=== PATIENT | female | born 1940 | race Caucasian/White ===

== ENCOUNTER 2024-11-30 14:12 | Inpatient (IN) ==
--- NOTE | 2024-11-30 14:45 | Emergency Department Note ---
Impression & Plan Acute exacerbation of CHF (congestive heart failure), Acute dyspnea, Supratherapeutic INR, Pulmonary edema ED Provider Note HISTORY OF PRESENT ILLNESS: Patient is a 84-year-old female presenting due to shortness of breath and elevated INR. Patient presents from home after EMS was called because the patient's doctor called her due to an elevated INR of 9.5. She was referred to the emergency department for vitamin K treatment. Patient reports generalized chest pressure that she rates a 4 out of 10 that is been ongoing for "a very long time." She wears 2 L nasal cannula at baseline. Reports she is more short of breath over the last few days than normal. She reports her left leg is slightly more swollen than it normally is. Patient does not know what anticoagulant she is on or why she is on it. Denies any recent cough or fevers. Denies any abdominal pain, nausea or vomiting. On review of patient's chart, she is on warfarin 5 mg for DVT and PE prophylaxis. ROS: as above PHYSICAL EXAM: Constitutional: Patient appears in no acute distress. Morbidly obese HENT: Head: Normocephalic and atraumatic. Eyes: EOMI, PERRL Mouth/Throat: Mucous membranes moist. Neck: Trachea midline. Neck supple. Cardiovascular: Irregular rhythm. No murmurs, rubs or gallops. Intact distal pulses. Pulmonary/Chest: No respiratory distress. Breath sounds clear and equal bilaterally. No wheezes or rales. Abdominal: Abdomen soft, no tenderness, rebound or guarding. Musculoskeletal: No tenderness or deformity noted. +1 edema of the left lower extremity extending to the mid tibia. Skin: Warm and dry. No rash, erythema, pallor or cyanosis Psychiatric: Appropriate mood and affect for situation. Neurological: Alert and keenly responsive. CN II-XII grossly intact, moving all extremities equally and fully. MDM: - Vitals signs showed tachycardic and hypoxic. Patient was hypoxic on her 2 L nasal cannula and was bumped up to 4 L nasal cannula with improvement in her saturations - History obtained via patient. History as above. - Chronic conditions affecting care: CKD; HTN; CHF; BRAYDEN; chronic hypoxemia (on 2L NC at home); COPD - Differential diagnoses include, but are not limited to: Congestive heart failure; acute coronary syndrome; COPD/asthma exacerbation; pulmonary edema; pulmonary embolism; pneumonia; pneumothorax; viral syndrome - Order placed for continuous cardiac monitoring. At this time, monitor showed rate of 100 bpm with irregular rhythm, per my interpretation. - External medical records reviewed. Discharge summary dated 11/07/2024 from [facility] was reviewed. Patient was admitted at that time due to increasing shortness of breath and leg edema for the last 2 weeks. Patient was diuresed with IV Lasix and was switched to p.o. torsemide on 10/29/2024. Patient continued to have worsening kidney function but gradually returned to her baseline. Her EF as of 10/26/2024 was 60%. On 10/30/2024, repeat chest x-ray showed concern for possible pneumonia and she was started on Rocephin and azithromycin. She completed a 5-day course of both azithromycin and Unasyn for her multifocal, multilobular pneumonia. She was deemed stable and medically ready for discharge on 11/24/2024. - EKG image interpreted by myself showed atrial fibrillation. Rate 99 bpm. QT 326. No acute ischemic changes. - Laboratory workup interpreted by myself showed normal WBC; anemia (Hgb 8.4); stable electrolytes; MIKE on CKD (Cr 3.54); elevated troponin (21.7); elevated BNP (864); normal AST/ALT; normal lipase - CXR image reviewed interpreted by myself showed pulmonary vascular congestion, per my interpretation. Radiology notes increased CHF with pulmonary edema versus pneumonia and possible small pleural effusions - Patient given 40 mg IV lasix - Patient was increased to 4 L nasal cannula with initial improvement in her saturations to the mid 90s. However, she is noted to desaturate to 89 to 91% on 4 L. High flow nasal cannula was ordered. - As of 16:56, patient's PT/INR had not resulted. I did call lab and speak with one of the lab technicians and they report that they are read running the patient's INR, given that it is critically elevated. Report the INR currently is over 9. - 10 mg IV vitamin K was ordered for supratherapeutic INR - Discussion was had with case sealer about patient's case and need for admission - Hospitalist consulted for admission - Patient admitted to [facility] service for further evaluation and management. I have personally spent 62 minutes of critical care time in the direct management of this patient. This includes bedside care, interpretation of diagnostic studies, and testing, discussion with consultants, patient, and family members, and other required patient management activities. This 62 minutes is in excess of all separately billable procedures. ASSESSMENT AND PLAN: Diagnosis: Acute exacerbation of CHF; acute dyspnea; supratherapeutic INR; pulmonary edema Plan: Admit Past Med/Surg History Problem List (Updated 11/30/24 @ 16:58 by Acacia Arredondo MD) Pulmonary edema (Acute) Supratherapeutic INR (Acute) Acute dyspnea (Acute) Acute exacerbation of CHF (congestive heart failure) (Acute) Anemia Medical History Anemia CRF (chronic renal failure) Social History Smoking Status: Former smoker Preferred Language: Zambian Feels Safe at Home: Yes Results & Data (ED) Vital Signs Vital Signs - 24 hr 11/30/24 14:16 11/30/24 14:16 11/30/24 14:31 Temperature 36.5 C Temperature Source Oral Pulse Rate 106 H 100 H Pulse Rate [Apical] Respiratory Rate 22 Blood Pressure 124/70 Blood Pressure [Right Arm] Blood Pressure Mean 88 Blood Pressure Mean [Right Arm] Blood Pressure Position Sitting Pulse Oximetry 90 86 L Oxygen Delivery Method Nasal Cannula Nasal Cannula Oxygen Flow Rate 4 2 Sepsis Recent Fever Within 48 Hours No Sepsis New/Unexplained Change in Mental Status No Sepsis Action Taken by Nursing Physician Notified Oxygen Flow Rate - Titration 4 Pulse Oximetry Post Tiitration 90 11/30/24 16:05 Temperature Temperature Source Pulse Rate Pulse Rate [Apical] 89 Respiratory Rate 18 Blood Pressure Blood Pressure [Right Arm] 133/79 Blood Pressure Mean Blood Pressure Mean [Right Arm] 97 Blood Pressure Position Pulse Oximetry 91 Oxygen Delivery Method Nasal Cannula Oxygen Flow Rate 4 Sepsis Recent Fever Within 48 Hours Sepsis New/Unexplained Change in Mental Status Sepsis Action Taken by Nursing Oxygen Flow Rate - Titration Pulse Oximetry Post Tiitration Laboratory Data 11/30/24 14:34 11/30/24 14:34 Lab Results 11/30/24 Range/Units 14:34 WBC 6.54 (4.8-10.8) K/ul RBC 4.13 L (4.20-5.40) M/uL Hgb 8.4 L (12.0-16.0) g/dl Hct 28.3 L (37.0-47.0) % MCV 68.5 L (80.0-100.0) fL MCH 20.3 L (25.0-34.0) pg MCHC 29.7 L (32.0-36.0) g/dL RDW Std Deviation 46.8 H (36.4-46.3) fL RDW Coeff of Elena 19.4 H (11.5-14.5) % Plt Count 321 (130-400) K/uL MPV 10.0 (9.4-12.4) fL Immature Gran % (Auto) 0.5 % Neut % (Auto) 75.0 % Lymph % (Auto) 11.9 % George % (Auto) 10.9 % Eos % (Auto) 1.5 % Baso % (Auto) 0.2 % Neut # (Auto) 4.91 (1.40-6.50) K/uL Lymph # (Auto) 0.78 L (1.20-3.40) K/uL George # (Auto) 0.71 H (0.11-0.59) K/uL Eos # (Auto) 0.10 (0.00-0.50) K/uL Baso # (Auto) 0.01 (0.00-0.20) K/uL Immature Gran # (Auto) 0.03 (0.01-0.20) K/uL Microcytosis Present Tear Drop Cells 1+ Ovalocytes 1+ Sodium 140 (136-145) mmol/L Potassium 4.6 (3.5-5.1) mmol/L Chloride 103 (98-107) mmol/L Carbon Dioxide 30 (21-32) mmol/L Anion Gap 7 (3-11) BUN 95 H (6-23) mg/dl Creatinine 3.54 H (0.6-1.2) mg/dl Est Cr Clr Drug Dosing 12.8 ml/min eGFR 12.19 BUN/Creatinine Ratio 26.8 H (10-20) Glucose 109 H (70-99(Fasting)) mg/dl Calcium 9.1 (8.6-10.3) mg/dl Total Bilirubin 0.6 (0.2-1.0) mg/dl AST 23 (13-39) U/L ALT 13 (7-52) U/L Alkaline Phosphatase 36 (34-104) U/L Troponin I High Sens 21.7 H (0-14) pg/ml B-Natriuretic Peptide 864 H (0-100) pg/ml Total Protein 6.8 (6.0-8.3) gm/dl Albumin 3.6 (3.4-5.0) gm/dl Globulin 3.2 (2.5-4.0) gm/dl Albumin/Globulin Ratio 1.1 (0.9-2) Lipase 18 (11-82) U/L Imaging Data Radiologist's Impression: Chest X-Ray 11/30/24 14:16 XR chest 1V portable CLINICAL HISTORY: Chest pain, nonspecific COMPARISON STUDY: 10/08/2022 FINDINGS: There is increased cardiomegaly with pulmonary vascular congestion. There is interval patchy bilateral pulmonary opacity most prominent centrally. There is blunting of the costophrenic angles. No pneumothorax. IMPRESSION: 1. Increased CHF. 2. Pulmonary edema versus pneumonia. 3. Possible small pleural effusions. ACT 112: Negative or not required by law. Electronically signed by: Cain Cornelius M.D. 11/30/2024 2:48 PM Discharge Plan Visit Data Chief Complaint: Chest Pain ED Provider: Acacia Arredondo Discharge Problem: Acute exacerbation of CHF (congestive heart failure), Acute dyspnea, Supratherapeutic INR, Pulmonary edema Condition: Fair Forms Stand Alone Forms: My [facility] Referrals Referrals: Luis Ross MD [Outside Practitioners] -
--- NOTE | 2024-11-30 14:49 | XRay Report ---
XR chest 1V portable CLINICAL HISTORY: Chest pain, nonspecific COMPARISON STUDY: 10/08/2022 FINDINGS: There is increased cardiomegaly with pulmonary vascular congestion. There is interval patch y bilateral pulmonary opacity most prominent centrally. There is blunting of the costophrenic angles. No pneumothorax. IMPRESSION: 1. Increased CHF. 2. Pulmonary edema versus pneumonia. 3. Possible small pleural effusions. ACT 112: Negative or not required by law. Electronically signed by: Cain Cornelius M.D. 11/30/2024 2:48 PM
[2024-11-30 14:52] LABS: Hematocrit (blood only) 28.3 % (37.0-47.0); Hemoglobin 8.4 g/dl (12.0-16.0); Immature Granulocytes # (auto) 0.03 K/uL (0.01-0.20); Immature Granulocytes % (auto) 0.5 %; Mean Corpuscular Hemoglobin 20.3 pg (25.0-34.0); Mean Corpuscular Volume 68.5 fL (80.0-100.0); RDW Standard Deviation 46.8 fL (36.4-46.3); Red Blood Count 4.13 M/uL (4.20-5.40); White Blood Count 6.54 K/ul (4.8-10.8)
[2024-11-30 15:10] LABS: Alanine Aminotransferase 13.0 U/L (7-52); Albumin Globulin Ratio 1.1 (0.9-2); Albumin Level 3.6 gm/dl (3.4-5.0); Alkaline Phosphatase 36.0 U/L (34-104); Anion Gap 7.0 (3-11); Bilirubin,Total 0.6 mg/dl (0.2-1.0); Blood Urea Nitrogen 95.0 mg/dl (6-23); Calcium 9.1 mg/dl (8.6-10.3); Carbon Dioxide 30.0 mmol/L (21-32); Chloride 103.0 mmol/L (98-107); Creatinine Clr Calc Pharmacy 12.8 ml/min; Globulin 3.2 gm/dl (2.5-4.0); Glucose 109.0 mg/dl (70-99(Fasting)); Lipase 18.0 U/L (11-82); Potassium 4.6 mmol/L (3.5-5.1); Sodium 140.0 mmol/L (136-145); Total Protein 6.8 gm/dl (6.0-8.3)
[2024-11-30 15:13] LABS: Microcytosis Present; Ovalocytes 1+; Platelet Count 321 K/uL (130-400); Tear Drop Cells 1+
[2024-11-30 17:21] LABS: INR > 9.5 (0.9-1.1); Prothrombin Time > 90.0 Seconds (9.0-12.0)
[2024-11-30] MEDS: FUROSEMIDE 40 MG/4 ML VIAL IV ONE (17:37)
[2024-11-30] MEDS: PHYTONADIONE 10 MG in DEXTROSE 5% 50 ML IV ONE (18:19)
--- NOTE | 2024-11-30 18:26 | History & Physical Report ---
Date of Service November 30, 2024 Assessment & Plan (1) Hypoxic respiratory failure: (2) Pulmonary edema: (3) Supratherapeutic INR: (4) Acute exacerbation of CHF (congestive heart failure): (5) Anemia: (6) Acute renal failure: Plan #acute hypoxic respiratory failure present on admissionappears to be pulmonary edema due to undefined CHF. I do not find record of an echocardiogram from her previous hospital stay, and she does not recall 1 being done. Fortunately nothing appears consistent with an acute NJ right now, and we will manage the CHF even as we define its etiology. I suspect the "why now" is likely sodium ingestion at home given that she was only home for about a week and then started feeling more dyspneicwe will work on educating her further. Given that she is in significant respiratory failure requiring high flow nasal cannulahave to assume that diuresis will improve her acute renal failure, and also unfortunately have to value protecting her breathing over her GFR at the current time. Lasix 40 mg IV twice daily. Follow urine output, follow lung exam and oxygen requirements, follow creatinine. Check echocardiogram. Continue home medications for now, (Holding nifedipine to allow for more "wiggle room" and her blood pressure for additional Lasix and/or other CHF medications if necessary). adjust depending on echocardiogram results. #Acute renal failureappears to be superimposed on baseline probably stage III CKDhave to assume poor forward flow from CHF at this time. Follow with diuresis. As long as she is able to diurese well, I would anticipate stability or hopefully improvement in creatinine. If she does not respond to diuresis, then may need to enlist nephrology if we are in renal failure with pulmonary edema that is refractory to diuretics. At this time doing 40 mg of Lasix is only a moderate dose, obviously if she does not respond to the Lasix and her breathing is still poor, would first escalate the Lasix dosing. No suspicion of obstruction. #Atrial fibrillationappears to been a new diagnosis at her prior hospitalization. Rate is controlled. Her anticoagulation is supratherapeutic due to her Coumadin coagulopathy. Fortunately no bleeding. She has been given vitamin K in the ER. Follow her INR. I do not see a specific indication that requires Coumadingiven this situation, we will see if she is able to take a DOAC when she is stable for discharge at this time. (On review of her records from [place], there is a bullet point diagnosis of mitral stenosis, but I see no other confirmationthis could potentially be why she is on warfarin). #Anemiaappears to be at least subacute and stable from her hospitalization earlier in the month. No signs of active bleeding. Follow. #Chronic hypercapnic respiratory failurediagnosed as BRAYDEN and OHS during her previous hospital stayBiPAP at bedtime, as we get closer to discharge will need to make sure that she has the BiPAP at home. Morbid obesity with a BMI of 41.4 probably contributing to this. #Hypothyroidismcontinue Synthroid #DVT prophylaxisanticoagulated as above #[facility]ad[facility] OT to help guide disposition once she is stable enough to get out of the hospital, and she notes she would like to be a DNR. History of Present Illness Chief Complaint: shortness of breath Primary Care Provider: TIM Bowen patient is a very pleasant 84-year-old female. She was at [facility] through 11/07. Sent to [facility] for rehab, she was there for about 2 weeks and then discharged to home. She notes up until about yesterday she was doing reasonably well at home. And then yesterday into today she started to feel more progressively short of breath. Denies fevers chills or sweats. Denies cough or sputum. Denies weight gain or edema. On directed questioning endorses orthopnea and may be some dyspnea on exertion. Seems a little overwhelmed and is maybe currently not the best historian, a lot of HPI from directed questioningspontaneously she mostly volunteers feeling more short of breath. On review of records it appears that she was at [facility] with dyspnea initially thought to be CHF she had A-fib with RVR, was diuresed, and then it appears that whenever her breathing was not improving enough it was pursued further with a CT that showed a multifocal pneumonia that was treated. She also showed hypercapnic respiratory failure and was sent with prescription for BiPAP appears to be at bedtime. She was started on warfarin for stroke prophylaxis with her A-fib. Past Med/Surg History Problem List (Updated 11/30/24 @ 18:21 by Petr Rodriguez DO) Acute renal failure Hypoxic respiratory failure Pulmonary edema (Acute) Supratherapeutic INR (Acute) Acute dyspnea (Acute) Acute exacerbation of CHF (congestive heart failure) (Acute) Anemia Medical History CRF (chronic renal failure) Social History Smoking Status: Former smoker Preferred Language: Chinese Feels Safe at Home: Yes Review of Systems Review of Systems: All systems reviewed & are unremarkable except as noted in HPI & below Physical Exam Physical Exam: In general she is awake and alert fatigued and appears to be in a mild degree of respiratory distress. HEENT normocephalic atraumatic mucous membranes moist. Cardio is regular rate somewhat distant and appears to be A-fib on the monitor. Lungs are difficult exam due to her positioning and weakness, but seems to be diminished bibasilar to maybe about a third of the way up, faint scattered rales. Mild accessory muscle use. Mild conversational dyspnea. Abdomen is soft nondistended nontender no masses organomegaly. Extremities show bilateral lower extremity maybe 1+ edema with a chronic appearance to it left is maybe slightly larger than the right. Neuro shows cranial nerves II through XII be grossly intact gross motor and sensory intact. Musculoskeletal exam shows no gross lesions or deformities. Chest x-ray shows pulmonary edema. Labs noted especially for a creatinine of 3.54 (most recent of 2.41 here and it appears that it was as good is around 1.41.5 at [place]. She did have a high-sens itivity troponin there that peaked it appears at about 102 (it is about 22 here). She is anemic with a hemoglobin of 8.4 which is similar to what it was they are (8.6) Results & Data Results & Data Vital Signs (Past 12 Hours) Vital Signs Temp Pulse Pulse Resp BP BP Pulse Ox 11/30/24 17:51 11/30/24 17:03 93 H 20 91 11/30/24 16:05 89 18 133/79 91 11/30/24 14:31 100 H 11/30/24 14:16 86 L 11/30/24 14:16 97.7 F 106 H 22 124/70 90 O2 Del Method O2 Flow Rate FiO2 11/30/24 17:51 60 11/30/24 17:03 High Flow Nasal Cannula 30 50 11/30/24 16:05 Nasal Cannula 4 11/30/24 14:31 11/30/24 14:16 Nasal Cannula 2 11/30/24 14:16 Nasal Cannula 4 Code Status & VTE Plan VTE Prophylaxis Plan VTE Prophylaxis will be ordered: Yes PG Care Time/CCT Total # of Minutes Spent Total Time Spent with Patient: Total time spent is greater than 50% in coordination of care (as documented) at patient's floor/unit and/or counseling patient: Coding Level of Care Code 48430 INT INP/OBS CARE 3/75MIN Diagnoses Hypoxic respiratory failure J96.91 Pulmonary edema J81.1 Supratherapeutic INR R79.1 Acute exacerbation of CHF (congestive heart failure) I50.9 Anemia D64.9 Acute renal failure N17.9
[2024-11-30] MEDS ORDERED: POLYETHYLENE (MIRALAX) 17 GM PACK PO PRN (19:31)
[2024-11-30] MEDS ORDERED: ALUMINUM/MAGNESIUM SUSP 30 ML UDC PO PRN (19:31)
[2024-11-30] MEDS: FUROSEMIDE 40 MG/4 ML VIAL IV SCH (20:24)
[2024-12-01] MEDS: LEVOTHYROXINE SODIUM 50 MCG TABLET PO SCH (05:42)
[2024-12-01 06:28] LABS: Hematocrit (blood only) 29.7 % (37.0-47.0); Hemoglobin 8.7 g/dl (12.0-16.0); Immature Granulocytes # (auto) 0.06 K/uL (0.01-0.20); Immature Granulocytes % (auto) 0.6 %; Mean Corpuscular Hemoglobin 20.0 pg (25.0-34.0); Mean Corpuscular Volume 68.1 fL (80.0-100.0); RDW Standard Deviation 45.9 fL (36.4-46.3); Red Blood Count 4.36 M/uL (4.20-5.40); White Blood Count 9.88 K/ul (4.8-10.8)
[2024-12-01 06:34] LABS: Platelet Count 341 K/uL (130-400)
[2024-12-01 06:44] LABS: Anion Gap 10.0 (3-11); Blood Urea Nitrogen 100.0 mg/dl (6-23); Calcium 9.5 mg/dl (8.6-10.3); Carbon Dioxide 32.0 mmol/L (21-32); Chloride 101.0 mmol/L (98-107); Creatinine Clr Calc Pharmacy 14.5 ml/min; Glucose 97.0 mg/dl (70-99(Fasting)); Potassium 4.5 mmol/L (3.5-5.1); Sodium 143.0 mmol/L (136-145)
[2024-12-01 06:55] LABS: Hypochromasia Present; Microcytosis Present; Ovalocytes 1+; Polychromasia 1+; Tear Drop Cells 1+
[2024-12-01 07:02] LABS: INR 1.8 (0.9-1.1); Prothrombin Time 18.3 Seconds (9.0-12.0)
--- NOTE | 2024-12-01 07:27 | Hospitalist Progress Note ---
Date of Service December 01, 2024 Assessment & Plan (1) Acute respiratory failure with hypoxia: (2) Acute on chronic heart failure with preserved ejection fraction: (3) Acute kidney injury superimposed on chronic kidney disease: (4) CKD stage 3b, GFR 30-44 ml/min: (5) Essential hypertension: (6) Paroxysmal atrial fibrillation: (7) Anticoagulation goal of INR 2 to 3: (8) Obesity hypoventilation syndrome: (9) BiPAP (biphasic positive airway pressure) dependence: (10) Microcytic hypochromic anemia: (11) Nicotine dependence in remission: (12) Dependence on supplemental oxygen: (13) Hypothyroidism (acquired): (14) Supratherapeutic INR: (15) Osteoporosis: (16) Mitral stenosis: (17) Chronic heart failure with preserved ejection fraction: Plan In summary this is an 84-year-old female who presented to the [facility] at the behest of their primary care physician due to supratherapeutic INR subsequently admitted for acute respiratory failure in the setting of acute on chronic heart failure exacerbation with preserved ejection fraction in addition to an acute on chronic kidney injury. #Acute on chronic respiratory failure with hypoxia secondary to acute on chronic HFpEF exacerbation // Paroxysmal atrial fibrillation // Essential hypertension Previously diagnosed condition; most recent ejection fraction from recent admission to an external hospital system was greater than 50% consistent with HFpEF; patient continues to manifest signs and symptoms of heart fail exacerbation including increased oxygen requirement, tachycardia, relative hypotension, pleural effusions and clinical exam consistent with volume overload from a primarily left-sided heart failure exacerbation; most recent diuresis rate of approximately 0.6 mL/kg/h Review the patient's home medications reveals torsemide 60 mg p.o. daily, which at this time we are not currently reaching the threshold up with previously administered loop diuretics; with 2 separate doses of bumetanide 2 mg IV the patient has had relatively minimal urine output compared to her apparent volume overload; at this time we will pursue bumetanide drip at 2 mg/h over a 5- hour period Place Urbano catheter for accurate output measures -Nursing to notify of new or increased oxygen requirement, sustained heart rate of greater than 120 or less than 50 bpm - Maintain low-sodium and low-fat diet -Measure intake and output every shift -If the patient does not have adequate diuresis with loop diuretic drip, may need to consider sequential nephron blockade with metolazone; if this is necessary would anticipate need to consult nephrology given her underlying renal disease and optimization of her diuresis and preservation of renal function -Follow daily RFP and Magnesium - Pending TTE #Acute kidney injury consequential of cardiorenal syndrome // CKD stage IIIb The patient's baseline renal function is presumed to be in stage IIIb range, there is limited previous documentation to confirm this; presented with elevated creatinine of greater than 3 with estimated creatinine clearance of less than 15; currently oliguric without recent hypotensive episode, is superimposed upon an acute heart failure exacerbation without specified recent needed nephrotoxins; at this time there are no significant electrolyte nor acid-base derangements; suspect this is likely prerenal acidemia in the setting of cardiorenal syndrome given her primary presentation of heart failure exacerbation - Nursing to modify urine output rate as detailed above #Supratherapeutic INR in the setting of VKA prescription The patient initially presented with a severely elevated INR and PTT which have improved after single dose of intravenous vitamin K; it is unclear based on previous documentation why the patient was started on a V KA as opposed to DOAC at her previous hospitalization when her atrial fibrillation was diagnosed however with discussion at bedside it appears to be a primarily financial concern Resume warfarin 5 mg p.o. daily on 12/01 Reassess INR on 12/03 #Obesity hypoventilation syndrome Chronic condition; maintain patient's O2 saturation during waking hours in the range of 88 to 92% to avoid hypercapnic respiratory failure; continue overnight BiPAP with patient's home settings Admission and Anticipated Discharge Date Admission Date: November 30, 2024 Subjective Ms. Gil is an 84-year-old female whose active medical conditions include chronic heart failure with preserved ejection fraction, paroxysmal atrial fibrillation, CKD stage IIIb, obesity hypoventilation syndrome among other chronic medical conditions who presented to the [facility] on 11/30 by the behest of their primary care physician due to being hypercoagulable on her prescribed vitamin K antagonist. She was subsequently admitted for acute on chronic heart failure exacerbation with acute respiratory failure with hypoxia. No acute overnight events; the patient does not endorse any concerns at this time Review of Systems Review of Systems: Review of cardiovascular, pulmonary, constitutional, genitourinary, gastrointestinal, neurologic systems was unremarkable Physical Exam Physical Exam: General: Elderly female in mild acute respiratory distress Vital Signs: Tachypneic with accessory muscle breathing, requiring 30 L via nasal cannula at 80% FiO2 to maintain O2 saturation in the range of 90 to 95%; tachycardic with irregular RR interval on telemetry in the range of 105 to 125 bpm HEENT: Tacky mucous membranes; pupils equally round reactive to light, extraocular motion intact Neck: Hepatojugular reflux noted approximately 5 cm cephalad of the costal border Pulmonary: Symmetric reduced chest wall excursion secondary to body habitus; diminished air movement in the posterior basilar segments bilaterally with soft crackles, remaining lobes have air movement with no restriction Cardiovascular: Tachycardic, irregularly irregular rhythm with no murmurs, rubs, or gallops; S1 and S2 normal; bilateral radial and posterior tibial pulse 2+; trace bilateral lower extremity edema distal of the mid leg with brisk capillary refill Gastrointestinal: Soft, protuberant; bowel sounds present throughout with normal pitch and frequency Neurologic: Cranial nerves II through XII grossly intact Results & Data Results & Data Vital Signs (Past 12 Hours) Vital Signs Temp Pulse Resp BP BP Pulse Ox Pulse Ox 12/01/24 03:42 99 H 22 92 12/01/24 03:31 36.5 C 127 H 18 127/105 H 93 11/30/24 22:43 104 H 25 H 93 11/30/24 22:00 11/30/24 21:32 112 H 16 159/108 H 90 11/30/24 21:17 104 H 36 H 90 11/30/24 20:22 91 11/30/24 20:22 102 H 21 123/93 O2 Del Method O2 Del Method O2 Flow Rate FiO2 12/01/24 03:42 High Flow Nasal Cannula 25 80 12/01/24 03:31 BiPAP 11/30/24 22:43 High Flow Nasal Cannula 30 65 11/30/24 22:00 High Flow Nasal Cannula 30 65 11/30/24 21:32 High Flow Nasal Cannula 30 65 11/30/24 21:17 High Flow Nasal Cannula 30 65 11/30/24 20:22 High Flow Nasal Cannula 11/30/24 20:22 Laboratory Results Improved INR from greater than 9.5-1.8; PTT previously greater than 90, now 18.3; creatinine downtrending to 3.06 from 3.54 PG Care Time/CCT Total # of Minutes Spent Total Time Spent with Patient: Total time spent is greater than 50% in coordination of care (as documented) at patient's floor/unit and/or counseling patient: Coding Level of Care Code 72165 SUB INP/OBS CARE 350MIN Diagnoses Acute respiratory failure with hypoxia J96.01 Acute on chronic heart failure with preserved ejection fraction I50.33 Acute kidney injury superimposed on chronic kidney disease N17.9; N18.9 CKD stage 3b, GFR 30-44 ml/min N18.32 Essential hypertension I10 Paroxysmal atrial fibrillation I48.0 Anticoagulation goal of INR 2 to 3 Z51.81; Z79.01 Obesity hypoventilation syndrome E66.2 BiPAP (biphasic positive airway pressure) dependence Z99.89 Microcytic hypochromic anemia D50.9 Cigarette nicotine dependence in remission F17.211 Nicotine product type: cigarettes Dependence on supplemental oxygen Z99.81 Hypothyroidism (acquired) E03.9 Supratherapeutic INR R79.1 Age-related osteoporosis without current pathological fracture M81.0 Osteoporosis type: age-related Presence of current pathological fracture: without current pathological fracture Nonrheumatic mitral valve stenosis I34.2 Cardiac valve disease etiology: nonrheumatic Chronic heart failure with preserved ejection fraction I50.32 (11) Nicotine dependence in remission Nicotine product type: cigarettes Qualified Code(s): F17.211 - Nicotine dependence, cigarettes, in remission (15) Osteoporosis Osteoporosis type: age-related Presence of current pathological fracture: without current pathological fracture Qualified Code(s): M81.0 - Age-related osteoporosis without current pathological fracture (16) Mitral stenosis Cardiac valve disease etiology: nonrheumatic Qualified Code(s): I34.2 - Nonrheumatic mitral (valve) stenosis
[2024-12-01] MEDS: BUMETANIDE 2 MG in SYRINGE 0 ML IV ONE ×2 (08:33→13:37)
[2024-12-01] MEDS: FAMOTIDINE 20 MG TAB PO SCH (08:34)
[2024-12-01] MEDS: ATORVASTATIN 20 MG TAB PO SCH (08:34)
[2024-12-01] MEDS: CALCITRIOL 0.25 MCG CAPSULE PO SCH (08:34)
[2024-12-01] MEDS: METOPROLOL SUCC 25MG EXT REL TAB PO SCH (08:34)
[2024-12-01] MEDS: CHOLECALCIFEROL 125 MCG (5,000 UNITS) TAB PO SCH (08:34)
[2024-12-01] MEDS: FENOFIBRATE NANOCRYSTALLIZED 145 MG TABLET PO SCH (08:34)
[2024-12-01] MEDS: RALOXIFENE HCL 60 MG TAB PO SCH (08:34)
[2024-12-01] MEDS: CYANOCOBALAMIN (B-12) 500 MCG TABLET PO SCH (08:34)
[2024-12-01] MEDS: POTASSIUM CHLORIDE 10 MEQ TABCR PO SCH (08:35)
[2024-12-01] MEDS ORDERED: CETIRIZINE HCL 10 MG TABLET PO SCH (09:00)
[2024-12-01] MEDS ORDERED: ASPIRIN 81 MG ECTAB PO SCH (09:00)
[2024-12-01 14:27] LABS: Base Excess VBG 9.2 mEq/L; HCO3 VBG 35 mmol/L; Oxygen Saturation VBG 79.9 %; PCO2 VBG 57 mmHg (38-50); PO2 VBG 48 mmHg; pH VBG 7.40 (7.36-7.41)
--- NOTE | 2024-12-01 14:29 | Communication Note ---
Date of Service: December 01, 2024 Called by nursing staff to evaluate patient at bedside due to new altered mental status; on initial evaluation the patient is somnolent, tachypneic with a respiratory rate of approximately 24-26 RPM with accessory muscle use similar to earlier in the day, requiring 3 L with 80% FiO2 via high flow nasal cannula saturating at 95 to 98% SpO2, stable blood pressure within normal range, tachycardic in the range of 115 to 120 bpm with irregular RR interval on telemetry; patient is arousable to loud verbal stimuli; she is not oriented to self, place, nor time; she rouses quickly, but precipitously falls back to sleep; she is able to follow commands, without focal neurologic deficit; GCS 13 E3 V4 M6; remaining physical exam is unchanged from what was documented earlier on 12/01 A/P: Metabolic encephalopathy, most likely to be hypercapnic respiratory failure; pending VBG at this time, though clinically is consistent with likely hypercapnia given the patient's known restrictive lung disease and persistently elevated SpO2 compared to goal without adequate ventilation support; after blood was drawn, patient is placed prematurely on BiPAP, we will reassess after 1 to 2 hours on BiPAP, or sooner if the patient's VBG is not consistent with the suspected cause.
[2024-12-01] MEDS: BUMETANIDE 10 MG in DEXTROSE 5% 10 ML IV SCH (14:35)
[2024-12-01 14:49] LABS: Hematocrit (blood only) 26.7 % (37.0-47.0); Hemoglobin 7.9 g/dl (12.0-16.0); Mean Corpuscular Hemoglobin 20.1 pg (25.0-34.0); Mean Corpuscular Volume 67.9 fL (80.0-100.0); Platelet Count 285 K/uL (130-400); RDW Standard Deviation 45.7 fL (36.4-46.3); Red Blood Count 3.93 M/uL (4.20-5.40); White Blood Count 7.12 K/ul (4.8-10.8)
[2024-12-01 14:56] LABS: Albumin Level 3.3 gm/dl (3.4-5.0); Anion Gap 10.0 (3-11); Blood Urea Nitrogen 92.0 mg/dl (6-23); Calcium 9.0 mg/dl (8.6-10.3); Carbon Dioxide 31.0 mmol/L (21-32); Chloride 99.0 mmol/L (98-107); Creatinine Clr Calc Pharmacy 14.4 ml/min; Glucose 118.0 mg/dl (70-99(Fasting)); Magnesium 2.4 mg/dl (1.7-2.4); Potassium 4.3 mmol/L (3.5-5.1); Sodium 140.0 mmol/L (136-145)
[2024-12-01] MEDS: WARFARIN SOD 5 MG TAB PO SCH (16:47)
--- NOTE | 2024-12-01 18:22 | XCELERA ---
[id number] \\[id number]
[2024-12-01] MEDS: LACTATED RINGER'S 500 ML IV ONE (22:51)
[2024-12-01] MEDS: ALBUMIN 25% 25 GM/100 ML VIAL IV ONE (22:56)
--- NOTE | 2024-12-01 23:02 | Communication Note ---
Date of Service: December 01, 2024 Nurse let me know that pt in afib RVR rates 130-140s this evening. BP was 110s/60-80s. She is on bipap. Per chart review, pt being treated for CHF, seemed to have 80 mg IV lasix yesterday on 11/30 and 4mg bumex IV today with initiation of bumex drip in the afternoon. BP subsequently in the 80/50s. Given 500mL LR bolus + 25gm albumin for intravascular retention. Repeat labs BMP and Mag ordered. Pt appears dry but otherwise well at bedside, has bipap on so difficult to converse but denies chest pain or SOB and states she is feeling well. Will continue to monitor overnight.
[2024-12-01 23:46] LABS: Anion Gap 9.0 (3-11); Calcium 8.9 mg/dl (8.6-10.3); Carbon Dioxide 33.0 mmol/L (21-32); Chloride 98.0 mmol/L (98-107); Magnesium 2.4 mg/dl (1.7-2.4); Potassium 4.3 mmol/L (3.5-5.1); Sodium 140.0 mmol/L (136-145)
[2024-12-01 23:51] LABS: Blood Urea Nitrogen 93.0 mg/dl (6-23); Creatinine Clr Calc Pharmacy 13.8 ml/min; Glucose 102.0 mg/dl (70-99(Fasting))
--- NOTE | 2024-12-02 01:12 | XRay Report ---
Exam(s): XR CXR 1 VIEW EXAM: XR Chest, 1 View CLINICAL HISTORY: Reason for exam: CHF f/u. TECHNIQUE: Frontal view of the chest. COMPARISON: 11/30/2024 FINDINGS: Lungs: Hazy perihilar and bibasilar increased densities suggesting CHF/pulmonary edema, slightly improved since previous. Pleural space: Unremarkable. No pneumothorax. Heart: Cardiac silhouette is mildly enlarged. Mediastinum: Unremarkable. Normal mediastinal contour. Bones/joints: Unremarkable. No acute fracture. IMPRESSION: 1. Hazy perihilar and bibasilar increased densities suggesting CHF/pulmonary edema, slightly improved since previous. The aortic arch is mildly calcified. 2. Cardiac silhouette is mildly enlarged. Electronically signed by: Rufino Duran MD 12/02/24 01:11 AM
[2024-12-02] MEDS: ACETAMINOPHEN 325 MG TAB PO PRN (06:08)
[2024-12-02 06:35] LABS: INR 1.7 (0.9-1.1); Prothrombin Time 17.4 Seconds (9.0-12.0)
--- NOTE | 2024-12-02 06:57 | Electrocardiogram Report ---
Test Reason : Blood Pressure : */* mmHG Vent. Rate : 99 BPM Atrial Rate : * BPM P-R Int : * ms QRS Dur : 94 ms QT Int : 326 ms P-R-T Axes : * 71 -80 degrees QTcB Int : 418 ms Atrial fibrillation Low voltage QRS Nonspecific T wave abnormality Abnormal ECG No previous ECGs available Confirmed by Jhony Jules ([id number]) on 12/02/2024 6:57:22 AM Referred By: REFERRED SELF Confirmed By: Jhony Jules
--- NOTE | 2024-12-02 07:17 | Hospitalist Progress Note ---
Date of Service December 02, 2024 Assessment & Plan (1) Acute respiratory failure with hypoxia: (2) Acute on chronic heart failure with preserved ejection fraction: (3) Acute kidney injury superimposed on chronic kidney disease: (4) Atrial fibrillation with rapid ventricular response: (5) Paroxysmal atrial fibrillation: (6) Anticoagulation goal of INR 2 to 3: (7) Obesity hypoventilation syndrome: (8) BiPAP (biphasic positive airway pressure) dependence: (9) Dependence on supplemental oxygen: (10) Supratherapeutic INR: Plan In summary this is an 84-year-old female who presented to the [facility] at the behest of their primary care physician due to lamb pratherapeutic INR subsequently admitted for acute respiratory failure in the setting of acute on chronic heart failure exacerbation with preserved ejection fraction in addition to an acute on chronic kidney injury. #Acute on chronic respiratory failure with hypoxia secondary to acute on chronic HFpEF exacerbation // Paroxysmal atrial fibrillation // Essential hypertension Previously diagnosed condition; TTE obtained on 12/01 shows hyperdynamic ejection fraction greater than 70% with rapid irregular rhythm consistent with patient's documented atrial fibrillation with rapid ventricular response as further detailed below; there is no evidence of cardiomyopathy nor ischemic injury at this time; patient continues to manifest signs and symptoms of heart failure exacerbation including increased oxygen requirement, tachycardia, relative hypotension, pleural effusions and clinical exam consistent with volume overload from a primarily left-sided heart failure exacerbation; The symptoms have improved since initiation of the bumetanide drip on 12/02; most recent diuresis rate of approximately 0.91 mL/kg/h Review the patient's home medications reveals torsemide 60 mg p.o. daily; continue with bumetanide 4 mg IV daily Maintain Urbano catheter for accurate output measures - Nursing to notify of new or increased oxygen requirement, sustained heart rate of greater than 120 or less than 50 bpm - Maintain low-sodium and low-fat diet - Measure intake and output every shift - Follow daily RFP and Magnesium #Atrial fibrillation with RVR Intermittent since initial presentation; most likely consequential of volume overload and subsequently maintaining the patient's heart failure exacerbation; patient is asymptomatic at this time Administer Cardizem bolus followed by gtt. Resume Coumadin on 12/02 #Acute kidney injury consequential of cardiorenal syndrome // CKD stage IIIb The patient's baseline renal function is presumed to be in stage IIIb range, there is limited previous documentation to confirm this; presented with elevated creatinine of greater than 3 with estimated creatinine clearance of less than 15; currently oliguric without recent hypotensive episode, is superimposed upon an acute heart failure exacerbation without specified recent needed nephrotoxins; at this time there are no significant electrolyte nor acid-base derangements; suspect this is likely prerenal acidemia in the setting of cardiorenal syndrome given her primary presentation of heart failure exacerbation - Nursing to notify of urine output rate as detailed above #Supratherapeutic INR in the setting of VKA prescription The patient initially presented with a severely elevated INR and PTT which have improved after single dose of intravenous vitamin K; it is unclear based on previous documentation why the patient was started on a V KA as opposed to DOAC at her previous hospitalization when her atrial fibrillation was diagnosed however with discussion at bedside it appears to be a primarily financial concern Resume warfarin 5 mg p.o. daily on 12/01 Reassess INR on 12/03 #Obesity hypoventilation syndrome Chronic condition; maintain patient's O2 saturation during waking hours in the range of 88 to 92% to avoid hypercapnic respiratory failure; continue overnight BiPAP with patient's home settings Admission and Anticipated Discharge Date Admission Date: November 30, 2024 Subjective Ms. Gil is an 84-year-old female whose active medical conditions include chronic heart failure with preserved ejection fraction, paroxysmal atrial fibrillation, CKD stage IIIb, obesity hypoventilation syndrome among other chronic medical conditions who presented to the [facility] on 11/30 by the behest of their primary care physician due to being hypercoagulable on her prescribed vitamin K antagonist. She was subsequently admitted for acute on chronic heart failure exacerbation with acute respiratory failure with hypoxi a. Overnight the patient was noted to enter into atrial fibrillation with rapid ventricular response, the responding physician ordered a fluid bolus which did not significantly change the patient's vital signs. The patient was asymptomatic of this arrhythmia however it is persistent this morning. The patient this morning is more alert compared to 12/01, still with some subjective shortness of breath however they feel improved compared to their initial presentation. Review of Systems Review of Systems: Review of cardiovascular, pulmonary, constitutional, genitourinary, gastrointestinal, neurologic systems was unremarkable Physical Exam Physical Exam: General: Elderly female in mild acute respiratory distress Vital Signs: Tachypneic with accessory muscle breathing, requiring 12 L via nasal cannula at 80% FiO2 to maintain O2 saturation in the range of 88 to 92%; tachycardic with irregular RR interval on telemetry in the range of 110 to 130 bpm HEENT: Tacky mucous membranes; pupils equally round reactive to light, extraocular motion intact Neck: Hepatojugular reflux noted approximately 5 cm cephalad of the costal border Pulmonary: Symmetric reduced chest wall excursion secondary to body habitus; diminished air movement in the posterior basilar segments bilaterally with soft crackles, remaining lobes have air movement with no restriction Cardiovascular: Tachycardic, irregularly irregular rhythm with no murmurs, rubs, or gallops; S1 and S2 normal; bilateral radial and posterior tibial pulse 2+; trace bilateral lower extremity edema distal of the mid leg with brisk capillary refill Gastrointestinal: Soft, protuberant; bowel sounds present throughout with normal pitch and frequency Genitourinary: Urbano catheter in place with approximately 200 mL of thelma urine without sediment Neurologic: Cranial nerves II through XII grossly intact Results & Data Results & Data Vital Signs (Past 12 Hours) Vital Signs Temp Pulse Pulse Resp BP Pulse Ox Pulse Ox 12/02/24 03:16 36.8 C 137 H 18 105/69 92 12/01/24 22:42 36.5 C 144 H 18 85/55 L 98 12/01/24 22:41 122 H 19 95 12/01/24 20:00 12/01/24 19:47 36.5 C 137 H 20 117/81 93 12/01/24 19:47 93 O2 Del Method O2 Del Method O2 Flow Rate O2 Flow Rate FiO2 12/02/24 03:16 Nasal Cannula 11 12/01/24 22:42 BiPAP 12/01/24 22:41 60 12/01/24 20:00 High Flow Nasal Cannula 7 12/01/24 19:47 High Flow Nasal Cannula 7 12/01/24 19:47 High Flow Nasal Cannula 7 Laboratory Results Laboratories results pending at this time PG Care Time/CCT Total # of Minutes Spent Total Time Spent with Patient: Total time spent is greater than 50% in coordination of care (as documented) at patient's floor/unit and/or counseling patient: Coding Level of Care Code 12232 SUB INP/OBS CARE 3/50MIN Diagnoses Acute respiratory failure with hypoxia J96.01 Acute on chronic heart failure with preserved ejection fraction I50.33 Acute kidney injury superimposed on chronic kidney disease N17.9; N18.9 Atrial fibrillation with rapid ventricular response I48.91 Paroxysmal atrial fibrillation I48.0 Anticoagulation goal of INR 2 to 3 Z51.81; Z79.01 Obesity hypoventilation syndrome E66.2 BiPAP (biphasic positive airway pressure) dependence Z99.89 Dependence on supplemental oxygen Z99.81 Supratherapeutic INR R79.1
[2024-12-02] MEDS: MAGNESIUM HYDROXIDE SUSP 30 ML UDC PO PRN (07:38)
[2024-12-02] MEDS ORDERED: STAT IV Infusion **Titration per Protocol STA (08:34)
[2024-12-02 11:34] LABS: Hematocrit (blood only) 25.7 % (37.0-47.0); Hemoglobin 7.4 g/dl (12.0-16.0)
[2024-12-02 11:44] LABS: Albumin Level 3.6 gm/dl (3.4-5.0); Anion Gap 9.0 (3-11); Blood Urea Nitrogen 92.0 mg/dl (6-23); Calcium 9.3 mg/dl (8.6-10.3); Carbon Dioxide 35.0 mmol/L (21-32); Chloride 98.0 mmol/L (98-107); Creatinine Clr Calc Pharmacy 14.8 ml/min; Glucose 95.0 mg/dl (70-99(Fasting)); Potassium 3.8 mmol/L (3.5-5.1); Sodium 142.0 mmol/L (136-145)
[2024-12-02] MEDS: BUMETANIDE 4 MG in SYRINGE 0 ML IV SCH (12:14)
--- NOTE | 2024-12-03 06:58 | Hospitalist Progress Note ---
Date of Service December 03, 2024 Assessment & Plan (1) Acute respiratory failure with hypoxia: (2) Acute on chronic heart failure with preserved ejection fraction: (3) Acute kidney injury superimposed on chronic kidney disease: (4) Atrial fibrillation with rapid ventricular response: (5) Paroxysmal atrial fibrillation: (6) Anticoagulation goal of INR 2 to 3: (7) Obesity hypoventilation syndrome: (8) BiPAP (biphasic positive airway pressure) dependence: (9) Dependence on supplemental oxygen: (10) Supratherapeutic INR: Plan In summary this is an 84-year-old female who presented to the [facility] at the behest of their primary care physician due to lamb pratherapeutic INR subsequently admitted for acute respiratory failure in the setting of acute on chronic heart failure exacerbation with preserved ejection fraction in addition to an acute on chronic kidney injury. #Acute on chronic respiratory failure with hypoxia secondary to acute on chronic HFpEF exacerbation // Paroxysmal atrial fibrillation // Essential hypertension Previously diagnosed condition; TTE obtained on 12/01 shows hyperdynamic ejection fraction greater than 70% with rapid irregular rhythm consistent with patient's documented atrial fibrillation with rapid ventricular response as further detailed below; there is no evidence of cardiomyopathy nor ischemic injury at this time; patient continues to manifest improving signs and symptoms of heart failure exacerbation including increased oxygen requirement, tachycardia, relative hypotension, pleural effusions and clinical exam consistent with volume overload from a primarily left-sided heart failure exacerbation; most recent diuresis rate of approximately 1.14 mL/kg/h Review the patient's home medications reveals torsemide 60 mg p.o. daily; continue with bumetanide 4 mg IV daily Maintain Urbano catheter for accurate output measures - Nursing to notify of new or increased oxygen requirement, sustained heart rate of greater than 120 or less than 50 bpm - Maintain low-sodium and low-fat diet - Measure intake and output every shift - Follow daily RFP and Magnesium - Pending PA and lateral chest film on 12/03 #Atrial fibrillation with RVR // Supratherapeutic INR in the setting of VKA prescription Intermittent since initial presentation; most likely consequential of volume overload and subsequently maintaining the patient's heart failure exacerbation; patient is asymptomatic at this time Continue Cardizem gtt, anticipate transition to p.o. on 12/03 or 12/04 Resumed Coumadin on 12/02; INR on 12/03 3.0, hold dose 12/03 and 12/04 with reassessment of INR on 12/05 #Acute kidney injury consequential of cardiorenal syndrome // CKD stage IIIb The patient's baseline renal function is presumed to be in stage IIIb range, there is limited previous documentation to confirm this; presented with elevated creatinine of greater than 3 with estimated creatinine clearance of less than 15; currently diuresing well, without recent hypotensive episode, this injury is superimposed upon an acute heart failure exacerbation without identified recent nephrotoxins; at this time there are no significant electrolyte nor acid-base derangements; suspect this is likely prerenal azotemia in the setting of cardiorenal syndrome given her primary presentation of heart failure exacerbation - Nursing to notify of urine output rate as detailed above #Obesity hypoventilation syndrome Chronic condition; maintain patient's O2 saturation during waking hours in the range of 88 to 92% to avoid hypercapnic respiratory failure; continue overnight BiPAP with patient's home settings Admission and Anticipated Discharge Date Admission Date: November 30, 2024 Subjective Ms. Gil is an 84-year-old female whose active medical conditions include chronic heart failure with preserved ejection fraction, paroxysmal atrial fibrillation, CKD stage IIIb, obesity hypoventilation syndrome among other chronic medical conditions who presented to the [facility] on 11/30 by the behest of their primary care physician due to being hypercoagulable on her prescribed vitamin K antagonist. She was subsequently admitted for acute on chronic heart failure exacerbation with acute respiratory failure with hypoxia. No acute overnight events; patient this morning feels mildly improved compared to 12/02 with no specific or acute complaints at this time Review of Systems Review of Systems: Review of cardiovascular, pulmonary, constitutional, genitourinary, gastrointestinal, neurologic systems was unremarkable Physical Exam Physical Exam: General: Elderly female in no acute distress Vital Signs: requiring 10 L via nasal cannula at 80% FiO2, maintaining O2 saturation in excess of goal range of 88 to 92%; intermittently tachycardic with irregular RR interval on telemetry in the range of 90-115 bpm HEENT: moist mucous membranes; pupils equally round reactive to light, extraocular motion intact Neck: Hepatojugular reflux no longer present Pulmonary: Symmetric reduced chest wall excursion secondary to body habitus; diminished air movement in the posterior basilar segments bilaterally with soft crackles, remaining lobes have air movement with no restriction Cardiovascular: controlled rate with irregularly irregular rhythm with no murmurs, rubs, or gallops; S1 and S2 normal; bilateral radial and posterior tibial pulse 2+; trace bilateral lower extremity edema distal of the mid leg with brisk capillary refill Gastrointestinal: Soft, protuberant; bowel sounds present throughout with normal pitch and frequency Genitourinary: Urbano catheter in place with approximately 100 mL of thelma urine without sediment, bag recently drained Neurologic: Cranial nerves II through XII grossly intact Results & Data Results & Data Vital Signs (Past 12 Hours) Vital Signs Temp Pulse Resp BP BP Pulse Ox Pulse Ox 12/03/24 02:30 36.7 C 105 H 18 131/71 94 12/02/24 22:23 36.6 C 93 H 18 135/82 93 12/02/24 20:00 12/02/24 20:00 93 12/02/24 19:21 36.5 C 89 20 143/80 H 92 O2 Del Method O2 Del Method O2 Flow Rate 12/03/24 02:30 Nasal Cannula 12/02/24 22:23 High Flow Nasal Cannula 12/02/24 20:00 High Flow Nasal Cannula 10 12/02/24 20:00 High Flow Nasal Cannula 12/02/24 19:21 High Flow Nasal Cannula 10 Laboratory Results Improved creatinine from 3.0 to 2.52 INR 3.0 from 1.7; pending H&H Diagnostic Findings Pending chest film, PA and lateral PG Care Time/CCT Total # of Minutes Spent Total Time Spent with Patient: Total time spent is greater than 50% in coordination of care (as documented) at patient's floor/unit and/or counseling patient: Coding Level of Care Code 06396 SUB INP/OBS CARE 2/35MIN Diagnoses Acute respiratory failure with hypoxia J96.01 Acute on chronic heart failure with preserved ejection fraction I50.33 Acute kidney injury superimposed on chronic kidney disease N17.9; N18.9 Atrial fibrillation with rapid ventricular response I48.91 Paroxysmal atrial fibrillation I48.0 Anticoagulation goal of INR 2 to 3 Z51.81; Z79.01 Obesity hypoventilation syndrome E66.2 BiPAP (biphasic positive airway pressure) dependence Z99.89 Dependence on supplemental oxygen Z99.81 Supratherapeutic INR R79.1
[2024-12-03 07:04] LABS: INR 3.0 (0.9-1.1); Prothrombin Time 29.7 Seconds (9.0-12.0)
[2024-12-03 07:12] LABS: Albumin Level 3.5 gm/dl (3.4-5.0); Anion Gap 8.0 (3-11); Blood Urea Nitrogen 91.0 mg/dl (6-23); Calcium 9.2 mg/dl (8.6-10.3); Carbon Dioxide 38.0 mmol/L (21-32); Chloride 97.0 mmol/L (98-107); Creatinine Clr Calc Pharmacy 17.6 ml/min; Glucose 97.0 mg/dl (70-99(Fasting)); Magnesium 2.4 mg/dl (1.7-2.4); Potassium 3.6 mmol/L (3.5-5.1); Sodium 143.0 mmol/L (136-145)
[2024-12-03 08:48] LABS: Hematocrit (blood only) 24.3 % (37.0-47.0); Hemoglobin 6.9 g/dl (12.0-16.0)
[2024-12-03] MEDS ORDERED: SODIUM CHLORIDE 0.9% 100 ML IV PRN (08:52)
--- NOTE | 2024-12-03 10:37 | XRay Report ---
XR chest 2V PA/lateral CLINICAL HISTORY: Reassess COMPARISON STUDY: 12/01/2024 FINDINGS: There is stable cardiomegaly with pulmonary vascular congestion. Stable diffuse pulmonary i nterstitial prominence. Stable patchy opacity at the left mid lung. Stable small pleural effusions. N o pneumothorax. IMPRESSION: Stable CHF and small bilateral pleural effusions with stable pulmonary edema versus pneu monia. ACT 112: Negative or not required by law. Electronically signed by: Cain Cornelius M.D. 12/03/2024 10:36 AM
[2024-12-03] MEDS: PANTOprazole 40 MG/10 ML SYR IV SCH (13:46)
--- NOTE | 2024-12-04 07:15 | Hospitalist Progress Note ---
Date of Service December 04, 2024 Assessment & Plan (1) Acute respiratory failure with hypoxia: (2) Acute on chronic heart failure with preserved ejection fraction: (3) Acute kidney injury superimposed on chronic kidney disease: (4) Atrial fibrillation with rapid ventricular response: (5) Paroxysmal atrial fibrillation: (6) Anticoagulation goal of INR 2 to 3: (7) Obesity hypoventilation syndrome: (8) BiPAP (biphasic positive airway pressure) dependence: (9) Dependence on supplemental oxygen: (10) Supratherapeutic INR: Plan In summary this is an 84-year-old female who presented to the [facility] at the behest of their primary care physician due to lamb pratherapeutic INR subsequently admitted for acute respiratory failure in the setting of acute on chronic heart failure exacerbation with preserved ejection fraction in addition to an acute on chronic kidney injury. #Acute on chronic respiratory failure with hypoxia secondary to acute on chronic HFpEF exacerbation // Paroxysmal atrial fibrillation // Essential hypertension Previously diagnosed condition; TTE obtained on 12/01 shows hyperdynamic ejection fraction greater than 70% with rapid irregular rhythm consistent with patient's documented atrial fibrillation with rapid ventricular response as further detailed below; there is no evidence of cardiomyopathy nor ischemic injury at this time; patient continues to manifest improving signs and symptoms of heart failure exacerbation including increased oxygen requirement, tachycardia, relative hypotension, pleural effusions and clinical exam consistent with volume overload from a primarily left-sided heart failure exacerbation; most recent diuresis rate of approximately 1.08 mL/kg/h Review the patient's home medications reveals torsemide 60 mg p.o. daily; continue with bumetanide 4 mg IV daily, continues to approach UOP rate consistent with euvolemic state (0.75 mL/kg/hr) Maintain Urbano catheter for accurate output measures; anticipate void trial 12/05 - Nursing to notify of new or increased oxygen requirement, sustained heart rate of greater than 120 or less than 50 bpm - Maintain low-sodium and low-fat diet - Measure intake and output every shift - Follow daily RFP and Magnesium #Atrial fibrillation with RVR // Supratherapeutic INR in the setting of VKA prescription Intermittent since initial presentation; most likely consequential of volume overload and subsequently maintaining the patient's heart failure exacerbation; patient is asymptomatic at this time Continue Cardizem gtt, anticipate transition to p.o. on 12/04 Resumed Coumadin on 12/02; INR on 12/03 3.0 progressively increased to 4.4 on 12/04; to discuss alternative anticoagulation options with CM, Coumadin held as of 12/04 #Acute kidney injury consequential of cardiorenal syndrome // CKD stage IIIb The patient's baseline renal function is presumed to be in stage IIIb range, there is limited previous documentation to confirm this; presented with elevated creatinine of greater than 3 with estimated creatinine clearance of less than 15; currently diuresing well, without recent hypotensive episode, this injury is superimposed upon an acute heart failure exacerbation without identified recent nephrotoxins; at this time there are no significant electrolyte nor acid-base derangements; suspect this is likely prerenal azotemia in the setting of cardiorenal syndrome given her primary presentation of heart failure exacerbation - Nursing to notify of urine output rate as detailed above #Obesity hypoventilation syndrome Chronic condition; maintain patient's O2 saturation during waking hours in the range of 88 to 92% to avoid hypercapnic respiratory failure; continue overnight BiPAP with patient's home settings Admission and Anticipated Discharge Date Admission Date: November 30, 2024 Subjective Ms. Gil is an 84-year-old female whose active medical conditions include chronic heart failure with preserved ejection fraction, paroxysmal atrial fibrillation, CKD stage IIIb, obesity hypoventilation syndrome among other chronic medical conditions who presented to the [facility] on 11/30 by the behest of their primary care physician due to being hypercoagulable on her prescribed vitamin K antagonist. She was subsequently admitted for acute on chronic heart failure exacerbation with acute respiratory failure with hypoxia. No acute overnight events; tolerated blood transfusion well. Continues to feel clinically improved Review of Systems Review of Systems: Review of cardiovascular, pulmonary, constitutional, genitourinary, gastrointestinal, neurologic systems was unremarkable Physical Exam Physical Exam: General: Elderly female in no acute distress Vital Signs: requiring 6 L via nasal cannula maintaining O2 saturation in excess of goal range of 88 to 92%; intermittently tachycardic with irregular RR interval on telemetry in the range of 90-115 bpm HEENT: moist mucous membranes; pupils equally round reactive to light, extraocular motion intact Pulmonary: Symmetric reduced chest wall excursion secondary to body habitus; diminished air movement in the posterior basilar segments bilaterally with soft crackles, remaining lobes have air movement with no restriction Cardiovascular: controlled rate with irregularly irregular rhythm with no murmurs, rubs, or gallops; S1 and S2 normal; bilateral radial and posterior tibial pulse 2+; trace bilateral lower extremity edema distal of the mid leg with brisk capillary refill Gastrointestinal: Soft, protuberant; bowel sounds present throughout with normal pitch and frequency Genitourinary: Urbano catheter in place with approximately 200 mL of thelma urine without sediment Neurologic: Cranial nerves II through XII grossly intact Results & Data Results & Data Vital Signs (Past 12 Hours) Vital Signs Temp Pulse Resp BP BP Pulse Ox Pulse Ox 12/04/24 04:45 142 H 20 121/91 12/04/24 02:46 37.0 C 131 H 20 150/74 H 91 12/04/24 02:00 133 H 20 12/03/24 23:51 37.1 C 111 H 20 132/69 92 12/03/24 20:00 92 12/03/24 19:19 O2 Del Method O2 Del Method O2 Flow Rate 12/04/24 04:45 12/04/24 02:46 Nasal Cannula 6.0 12/04/24 02:00 12/03/24 23:51 High Flow Nasal Cannula 6.0 12/03/24 20:00 High Flow Nasal Cannula 12/03/24 19:19 Nasal Cannula 4 Laboratory Results Hemoglobin improved to 8.8 posttransfusion Renal function is stable with active diuresis INR 4.4 PG Care Time/CCT Total # of Minutes Spent Total Time Spent with Patient: Total time spent is greater than 50% in coordination of care (as documented) at patient's floor/unit and/or counseling patient: Coding Level of Care Code 96889 SUB INP/OBS CARE 2/35MIN Diagnoses Acute respiratory failure with hypoxia J96.01 Acute on chronic heart failure with preserved ejection fraction I50.33 Acute kidney injury superimposed on chronic kidney disease N17.9; N18.9 Atrial fibrillation with rapid ventricular response I48.91 Paroxysmal atrial fibrillation I48.0 Anticoagulation goal of INR 2 to 3 Z51.81; Z79.01 Obesity hypoventilation syndrome E66.2 BiPAP (biphasic positive airway pressure) dependence Z99.89 Dependence on supplemental oxygen Z99.81 Supratherapeutic INR R79.1
[2024-12-04 07:31] LABS: Hematocrit (blood only) 28.7 % (37.0-47.0); Hemoglobin 8.8 g/dl (12.0-16.0)
[2024-12-04 07:49] LABS: Albumin Level 3.6 gm/dl (3.4-5.0); Anion Gap 8.0 (3-11); Blood Urea Nitrogen 77.0 mg/dl (6-23); Calcium 9.2 mg/dl (8.6-10.3); Carbon Dioxide 37.0 mmol/L (21-32); Chloride 97.0 mmol/L (98-107); Creatinine Clr Calc Pharmacy 20.6 ml/min; Glucose 141.0 mg/dl (70-99(Fasting)); Magnesium 2.2 mg/dl (1.7-2.4); Potassium 3.7 mmol/L (3.5-5.1); Sodium 142.0 mmol/L (136-145)
[2024-12-04 07:58] LABS: INR 4.4 (0.9-1.1); Prothrombin Time 43.3 Seconds (9.0-12.0)
[2024-12-04] MEDS: ONDANSETRON INJ 2 MG/ML 2 ML VIAL IV PRN (09:30)
[2024-12-05] MEDS: POTASSIUM CHLORIDE CRTAB 20 MEQ TABCR PO STA (03:46)
[2024-12-05] MEDS ORDERED: 0.2 MICRON FILTER SET 1 EACH IV ONE (03:52)
[2024-12-05] MEDS: AMIODARONE / D5W 150 MG/100 ML BAG IV STA ×2 (04:02→05:30)
--- NOTE | 2024-12-05 04:06 | Communication Note ---
Date of Service: December 05, 2024 Alerted by nurse around 03:30 that pt unable to sleep, anxious, afib with rates in the 140s, on HFNC at 30L to maintain high 80s saturations. Went to bedside to access. Lung sounds are tight with some scattered wheezing and overall subpar air movement noted in mid/lower bases. Pt anxious. She states it is hard for her to breath and respiratory effort is increased. She states she does not use CPAP/BIPAP at home and may have tried it in the past but it "didn't work for her." CXR done which shows progressive of fluid overload per my read. Ordered an additional 4mg bumex push. Ordered duoneb treatment. Hydroxyzine given for anxiety. For afib with rates sustaining 140-160s, ordered amio 150mg bolus to start with rates improved to the 120s. After about 20-30 minutes went back in to reassess pt and shes states her breathing is feeling better and she feels she is doing well. She is now quite chatty and pleasant, asking if I had eaten breakfast yet and when informed of the time she said "oh, it's that late?" And then states something about a nap. She knows she is in the hospital at [facility] and the year and self otherwise. I told pt we would try more of the bumex ("water pill by IV") to clear some more fluid from her lungs and she states "so if that doesn't work then that's it right?" Recommend GOC discussion during the day. I think this patient would be quite receptive to discussing her goals of care at this point given worsening clinical status and significant symptom burden. Overall care is complex as she has underlying CKD making full diuresis difficult. Overall prognosis at this point with progressive overload and worsening renal function is likely quite poor. Resident Activity Tracking Resident Involvement: Resident Care Provided Care Provided: Adult Hospital Medicine
[2024-12-05] MEDS: ALBUT/IPRATROP 3MG/0.5MG NEB 3 ML VIAL ONE (04:12)
[2024-12-05] MEDS: ALBUT/IPRATROP 3MG/0.5MG NEB 3 ML VIAL NEB STA (04:12)
[2024-12-05 04:14] LABS: Base Excess VBG 11.1 mEq/L; HCO3 VBG 39 mmol/L; Oxygen Saturation VBG 73.1 %; PCO2 VBG 66 mmHg (38-50); PO2 VBG 45 mmHg; pH VBG 7.38 (7.36-7.41)
[2024-12-05 04:21] LABS: Hematocrit (blood only) 30.0 % (37.0-47.0); Hemoglobin 8.7 g/dl (12.0-16.0); Immature Granulocytes # (auto) 0.13 K/uL (0.01-0.20); Immature Granulocytes % (auto) 1.0 %; Mean Corpuscular Hemoglobin 21.0 pg (25.0-34.0); Mean Corpuscular Volume 72.3 fL (80.0-100.0); Platelet Count 354 K/uL (130-400); RDW Standard Deviation 50.4 fL (36.4-46.3); Red Blood Count 4.15 M/uL (4.20-5.40); White Blood Count 13.48 K/ul (4.8-10.8)
[2024-12-05] MEDS: BUMETANIDE 4 MG in SYRINGE 0 ML IV ONE (04:24)
--- NOTE | 2024-12-05 04:33 | XRay Report ---
EXAM: XR chest 1V portable CLINICAL HISTORY: hypoxia TECHNIQUE: An X-ray image of the chest was obtained in AP projection. COMPARISON: 12/03/2024 CR FINDINGS: Pulmonary Parenchyma: There is a progressive course of interstitial, patchy opacities bilaterally. There is blunting of both costophrenic angles. A pleural effusion is suggested, which is a new finding. Heart and Mediastinum: Cardiomegaly is present. There is no mediastinal widening or mass. There is congested hilar vasculature. Bony Thorax: The bony thorax appears intact, without fractures or deformities. Soft Tissues: The soft tissues overlying the chest wall are unremarkable. IMPRESSION: 1. There is a progressive course of interstitial, patchy opacities bilaterally, with congested hilar vasculature, suggesting pulmonary edema versus infection. 2. There is blunting of both costophrenic angles. A pleural effusion is suggested, which is a new finding. 3. Cardiomegaly is stable. 4. Further clinical correlation and follow-up are advised. Electronically signed by Jaziel Goins 12-05-2024 04:32 AM
[2024-12-05 04:38] LABS: Alanine Aminotransferase 9.0 U/L (7-52); Albumin Globulin Ratio 1.2 (0.9-2); Albumin Level 3.7 gm/dl (3.4-5.0); Alkaline Phosphatase 39.0 U/L (34-104); Anion Gap 6.0 (3-11); Bilirubin,Total 1.3 mg/dl (0.2-1.0); Blood Urea Nitrogen 71.0 mg/dl (6-23); Calcium 9.3 mg/dl (8.6-10.3); Carbon Dioxide 39.0 mmol/L (21-32); Chloride 96.0 mmol/L (98-107); Creatinine Clr Calc Pharmacy 19.0 ml/min; Globulin 3.1 gm/dl (2.5-4.0); Glucose 143.0 mg/dl (70-99(Fasting)); Magnesium 2.2 mg/dl (1.7-2.4); Potassium 4.3 mmol/L (3.5-5.1); Sodium 141.0 mmol/L (136-145); Total Protein 6.8 gm/dl (6.0-8.3)
[2024-12-05 04:57] LABS: INR 5.2 (0.9-1.1); Prothrombin Time 50.1 Seconds (9.0-12.0)
[2024-12-05] MEDS ORDERED: AMIODARONE IV BOLUS & DRIP IV STA (05:19)
[2024-12-05] MEDS ORDERED: 0.2 MICRON FILTER SET 1 EACH IV STA (05:19)
[2024-12-05] MEDS ORDERED: STAT IV Infusion **Titration per Protocol STA (05:19)
[2024-12-05] MEDS: AMIODARONE / D5W 360 MG/200 ML BAG IV ONE (05:35)
[2024-12-05] MEDS: AMIODARONE / D5W 360 MG/200 ML BAG IV SCH (11:28)
--- NOTE | 2024-12-05 13:27 | Hospitalist Progress Note ---
Date of Service December 05, 2024 Assessment & Plan (1) Acute respiratory failure with hypoxia: (2) Acute on chronic heart failure with preserved ejection fraction: (3) Acute kidney injury superimposed on chronic kidney disease: (4) Atrial fibrillation with rapid ventricular response: (5) Paroxysmal atrial fibrillation: (6) Anticoagulation goal of INR 2 to 3: (7) Obesity hypoventilation syndrome: (8) BiPAP (biphasic positive airway pressure) dependence: (9) Dependence on supplemental oxygen: (10) Supratherapeutic INR: Plan Ayesha is an 84-year-old female who presented to the [facility] at the behest of their primary care physician due to supratherapeutic INR, subsequently admitted for acute respiratory failure in the setting of acute on chronic heart failure exacerbation with preserved ejection fraction, rapid atrial fibrillation, in addition to an acute on chronic kidney injury. Based on my conversation with her son, this is her second long hospital stay (previously at [facility]) and in between she was in SNF for about a week then home with him. He has seen significant decline in physical and mental status over past three months. Overnight she had significant worsening of her clinical status, with worsening rapid atrial fibrillation and worsening hypoxia and HFpEF # Atrial Fibrillation with rapid ventricular rate - uncontrolled - Heart rate remains high despite medications - diltiazem 240 mg po this am, amio bolus and drip started overnight - Uncontrolled atrial fibrillation causing acute pulmonary edema - Consult Dr. Raymond, brush finisher - Continue amiodarone - Diurese # Acute on chronic hypoxic respiratory failure - worsening, severe # Acute on chronic HFpEF - uncontrolled # moderate mitral stenosis Symptoms consistent with heart failure: dyspnea, fatigue, low oxygen levels, pulmonary congestion on chest x-ray. - Lost ~9 kg water weight via diuretics this admission and -6L. Currently no peripheral edema but has acute pulmonary edema - diurese - already had 4 mg IV bumex at 4am and another dose around 9am - metoprolol is currently on hold and she is on diltiazem - warfarin held, supratherapeutic # BRAYDEN/OHS untreated sleep apnea and hypoventilation contributing to condition. - per her son she only tolerated "maybe 15 minutes" of bipap over last 2 weeks she says mask hurts - consider trial of CPAP which may result in some degree of benefit, since she has not tolerated Bipap # COPD - history of, per her son. does not appear to be in acute exacerbation, no wheezing/bronchospasm - Continue monitoring and managing COPD symptoms, not currently on any inhalers or bronchodilators # coagulopathy - has continued with supratherapeutic INR despite warfarin held since 12/04, and was supratherapeutic on admission as well - related to hepatic congestion? Bilirubin slightly elevated to 1.3 otherwise LFT wnl - ongoing anticoagulation with warfarin may not be a safe option for her going forward, I assume it was chosen because of her mitral stenosis. consider DOAC instead - monitor for evidence of bleeding and reverse if indicated # MIKE on CKD 3b - Cr greater than 3 on presentation, improved despite diuresis consistent with cardiorenal cause - note she has granger - improved to 2.13 and unchanged DVT prophylaxis: currently anticoagulated INR>5 PT/OT evaluations: ordered Updated family member: son in room Goals of care: I discussed extensively at bedside with Ayesha and her son efrem sal. She is DNR/DNI. She has been calling all her relatives telling them she's dying this morning. Earlier she said she wanted to stop treatment. For me she says she wants to continue treatment. She is hard of hearing and somewhat confused and unable to make a distinction between her acute illness and prognosis versus her chronic illnesses and prognosis. Her son is understanding and supportive. He has seen significant decline last three months. We both communicated to her that going home alone in the future was not an option with her current state of health. We touched on the idea of comfort measures or hospice. I have consulted palliative care to continue working on these discussions and help clarify. Ayesha has several acute conditions which are unstable and/or worsening with high risk of further clinical decompensation, medical decision making for this encounter was of high complexity Admission and Anticipated Discharge Date Admission Date: November 30, 2024 Results & Data Results & Data Vital Signs (Past 12 Hours) Vital Signs Temp Pulse Pulse Resp BP BP Pulse Ox 12/05/24 12:17 36.8 C 140 H 24 163/101 H 92 12/05/24 10:30 142 H 22 92 12/05/24 08:00 135 H 12/05/24 08:00 12/05/24 07:42 142 H 22 92 12/05/24 07:28 36.6 C 138 H 18 147/98 H 92 12/05/24 04:12 130 H 26 H 92 12/05/24 03:13 37.4 C 139 H 24 173/82 H 92 12/05/24 03:07 120 H 22 94 O2 Del Method O2 Flow Rate FiO2 12/05/24 12:17 High Flow Nasal Cannula 30 90 12/05/24 10:30 High Flow Nasal Cannula 30 90 12/05/24 08:00 12/05/24 08:00 High Flow Nasal Cannula 30 90 12/05/24 07:42 High Flow Nasal Cannula 30 90 12/05/24 07:28 CPAP 12/05/24 04:12 High Flow Nasal Cannula 30 90 12/05/24 03:13 High Flow Nasal Cannula 12/05/24 03:07 High Flow Nasal Cannula 30 90 PG Care Time/CCT Total # of Minutes Spent Total Time Spent with Patient: Total time spent is greater than 50% in coordination of care (as documented) at patient's floor/unit and/or counseling patient: Coding Level of Care Code 33694 SUB INP/OBS CARE 3/50MIN Diagnoses Acute respiratory failure with hypoxia J96.01 Acute on chronic heart failure with preserved ejection fraction I50.33 Acute kidney injury superimposed on chronic kidney disease N17.9; N18.9 Atrial fibrillation with rapid ventricular response I48.91 Paroxysmal atrial fibrillation I48.0 Anticoagulation goal of INR 2 to 3 Z51.81; Z79.01 Obesity hypoventilation syndrome E66.2 BiPAP (biphasic positive airway pressure) dependence Z99.89 Dependence on supplemental oxygen Z99.81 Supratherapeutic INR R79.1
--- NOTE | 2024-12-05 15:43 | Cardiology Consultation ---
Date of Consultation December 05, 2024 Assessment & Plan (1) Atrial fibrillation with rapid ventricular response: (2) Chronic heart failure with preserved ejection fraction: (3) Mitral stenosis: Plan 1. Hypoxemic respiratory failure: The initial assumption was that this was rel ated to pulmonary vascular congestion. However, the patient has affected a significant diuresis over the past few days without any notable improvement in her symptoms. In fact, her oxygenation has worsened. She is also become more tachycardic and BUN is rising. I think she may have a primary pulmonary process. Her x-ray is markedly abnormal and could be consistent with an interstitial process such as a pneumonitis or multifocal pneumonia. No hypercapnia on her ABG performed today. She may respond better to noninvasive ventilation with BiPAP, this seems to have been used at [facility]. 2. Heart failure with preserved ejection fraction: This was the initial assumption based on her x-ray. However, she is affected to good diuresis. Given her severe LVH and hyperdynamic ventricle she may actually have some detrimental effect to overdiuresis. I would hesitate to continue aggressive diuresis at this point. I would search for alternate causes of her declining respiratory status. If this truly represents heart failure with preserved ejection fraction then it is clearly refractory and unlikely to respond to any specific treatment. 3. Atrial fibrillation: Reportedly well-controlled prior to discharge from [facility] on relatively low-dose of metoprolol. Is very likely that her respiratory failure and subsequent diuresis has driven elevated ventricular rates. Again, this would be poorly tolerated given her severe LVH and mitral stenosis. I would avoid additional aggressive diuresis. I think improved respiratory status and volume status will result in better control rates. 4. Mitral stenosis: Moderate. This is the indication for warfarin in the setting of atrial fibrillation. I think we should seek alternate explanations for her declining respiratory status. If this truly represents decompensated heart failure with preserved ejection fraction, then she is in a refractory situation. Unlikely to benefit from standard therapies and a pivot to palliative care should be considered. History of Present Illness Reason for Consultation: Hypoxia, atrial fibrillation Requesting Physician: Reina Attending Physician: Krysta Huang MD History of Present Illness The patient is an 84-year-old woman who has a history of oxygen dependent COPD. She apparently was admitted to [facility] at the end of October. At that time she was noted to be hypoxic and hypercapnic. She was treated for respiratory failure, congestive heart failure and pneumonia at that facility. She was discovered at the time of admission to [facility] to have atrial fibrillation which had not previously been diagnosed. An echocardiogram also demonstrated moderate mitral stenosis. She was dischar [facility] to a rehab facility on supplemental oxygen and antibiotics. However, it seemed that her breathing deteriorated and she was eventually admitted to our facility. The initial suspicion was that the patient suffered from pulmonary edema associated with her atrial fibrillation. She underwent a diuresis and attempts at rate control. However, her clinical condition failed to significantly improve and over the past 24 hours seems to have deteriorated. Patient now requiring more oxygen. She is a poor historian. She has some difficulty remembering the events over the past few weeks. Her sons were present for today's interview and did supply some supplemental information. They feel that over the past 3 months she has been declining steadily. This seems to be in reference to her activity tolerance. She is known to use supplemental oxygen at all times, but has had more difficulty with activity over the past few months. She currently has some element of dyspnea. However, she denied symptoms of chest discomfort. She is not been having symptoms of chest discomfort. She is not aware of any palpitations currently. She is not really been out of bed or had much opportunity for ambulation recently. She did not endorse symptoms of dizziness or lightheadedness. Allergies Allergy/AdvReac Type Severity Reaction Status Date / Time No Known Drug Allergies Allergy Unknown Unknown Verified 12/01/24 07:33 Patient History Social History Smoking Status: Former smoker Tobacco Type: Cigarettes Hx Alcohol Use: No Hx Substance Use: No Preferred Language: Tunisian Communication Ability: Effective Detective Supervisor Required: No Beliefs That Will Affect Care: None Current Living Situation: Alone Feels Safe at Home: Yes Assistive Devices: Cane and Walker Review of Systems Review of Systems: Per HPI Physical Exam Physical Exam: She is alert and oriented to person and place. Confused at times. Mood affect appear normal. She answered all questions appropriately. Using high flow nasal cannula HEENT: Sclerae are anicteric. Pupils are equal and reactive to light and accommodation. Extraocular movements were intact. Neuro: Cranial nerves intact Lungs: Poor air movement overall. No rales, some expiratory wheezing. Increased work of breathing. Cardiac: The rhythm was irregular. S1 and S2 were normal. Systolic murmur appreciated. The PMI was not markedly displaced on palpation. Abdomen: The abdomen was soft and nontender. Extremities: Patient has bilateral radial pulses that are equal in intensity. There is no evidence cyanosis or clubbing. There was no evidence of significant peripheral edema bilaterally. Skin: There are no rashes noted on examination today. Results & Data Vital Signs (Past 12 Hours) Vital Signs Temp Pulse Pulse Resp BP Pulse Ox O2 Del Method 12/05/24 14:55 129 H 26 H 91 High Flow Nasal Cannula 12/05/24 14:38 111 H 143/88 H 12/05/24 12:17 36.8 C 140 H 24 163/101 H 92 High Flow Nasal Cannula 12/05/24 10:30 142 H 22 92 High Flow Nasal Cannula 12/05/24 08:00 135 H 12/05/24 08:00 High Flow Nasal Cannula 12/05/24 07:42 142 H 22 92 High Flow Nasal Cannula 12/05/24 07:28 36.6 C 138 H 18 147/98 H 92 CPAP 12/05/24 04:12 130 H 26 H 92 High Flow Nasal Cannula O2 Flow Rate FiO2 12/05/24 14:55 30 90 12/05/24 14:38 12/05/24 12:17 30 90 12/05/24 10:30 30 90 12/05/24 08:00 12/05/24 08:00 30 90 12/05/24 07:42 30 90 12/05/24 07:28 12/05/24 04:12 30 90 Laboratory Results Abnormal Lab Results 12/05/24 04:01 WBC 13.48 H RBC 4.15 L Hgb 8.7 L Hct 30.0 L MCV 72.3 L MCH 21.0 L MCHC 29.0 L RDW Std Deviation 50.4 H RDW Coeff of Elena 19.9 H Plt Count 354 MPV 10.0 Immature Gran % (Auto) 1.0 Neut % (Auto) 82.4 Lymph % (Auto) 6.2 [place] % (Auto) 9.2 Eos % (Auto) 1.0 Baso % (Auto) 0.2 Neut # (Auto) 11.12 H Lymph # (Auto) 0.83 L [place] # (Auto) 1.24 H Eos # (Auto) 0.13 Baso # (Auto) 0.03 Immature Gran # (Auto) 0.13 PT 50.1 H INR 5.2 H VBG pH 7.38 VBG pCO2 66 H VBG pO2 45 VBG HCO3 39 VBG O2 Saturation 73.1 VBG Base Excess 11.1 Sodium 141 Potassium 4.3 Chloride 96 L Carbon Dioxide 39 H Anion Gap 6 BUN 71 H Creatinine 2.31 H Est Cr Clr Drug Dosing 19.0 eGFR 20.34 BUN/Creatinine Ratio 30.7 H Glucose 143 H Lactate 1.2 Calcium 9.3 Phosphorus 2.6 Magnesium 2.2 Total Bilirubin 1.3 H AST 16 ALT 9 Alkaline Phosphatase 39 Total Protein 6.8 Albumin 3.7 Globulin 3.1 Albumin/Globulin Ratio 1.2 Diagnostic Findings Echocardiogram 12/01/2024: Hyperdynamic LV systolic function with ejection fraction of 70%. Severe LVH. Mild biatrial dilation. Aortic sclerosis without stenosis. Severe mitral annular calcification with moderate mitral stenosis. PG Care Time/CCT Total # of Minutes Spent Total Time Spent with Patient: Total time spent is greater than 50% in coordination of care (as documented) at patient's floor/unit and/or counseling patient: Coding Level of Care Code 06432 INT INP/OBS CARE 3/75MIN Diagnoses Atrial fibrillation with rapid ventricular response I48.91 Chronic heart failure with preserved ejection fraction I50.32 Nonrheumatic mitral valve stenosis I34.2 Cardiac valve disease etiology: nonrheumatic (3) Mitral stenosis Cardiac valve disease etiology: nonrheumatic Qualified Code(s): I34.2 - Nonrheumatic mitral (valve) stenosis
--- NOTE | 2024-12-05 16:23 | Communication Note ---
Date of Service: December 05, 2024 Heart rate a little improved Discussed with Dr. Raymond Will continue evaluation for pulmonary process. PE unlikely since she has been persistently coagulopathic on warfarin. Ordered procalcitonin now and in AM, MRSA nares, resp biofire Ordered noncontrast chest CT. Hopefully she will tolerate Meanwhile ordered empiric antibiotics for CAP with pseudomonas coverage because she has COPD and back to back long hospitalizations - cefepime and azithromycin
[2024-12-05] MEDS: CEFEPIME 2000MG 2,000 MG/20 ML SYR IV ONE (17:10)
[2024-12-05] MEDS: AZITHROMYCIN 500 MG/255 ML BAG IV SCH (17:12)
--- NOTE | 2024-12-05 17:23 | CT Scan Report ---
CT chest without contrast History: Hypoxia Comparison: None Technique: Helical CT imaging of the chest performed without IV contrast Dose reduction techniques were achieved by using automatic exposure control and/or adjustment of mA and/or kV according to patient size and/or use of iterative reconstruction technique. Findings: There are small bilateral pleural effusions with subjacent compressive atelectasis. Throughout the lungs, there are mixed alveolar ground glass as well as consolidative opacities, and interstitial pulmonary edema seen. No pneumothorax. Heart size is enlarged. Prominent mitral annular calcifications. The thoracic aorta is normal in size. The pulmonary artery is normal in size. No significant pericardial effusion. No suspicious lymphadenopathy in the chest. The central airway is clear. Limited visualized upper abdomen. No acute bony abnormalities. Impression: Cardiomegaly and small pleural effusions are seen. Interstitial pulm edema. Scattered mixed patchy ground glass and consolidative opacities, much of which likely represents pulmonary edema, with underlying infection not excluded. Electronically signed by Brian Shields 12-05-2024 5:23 PM
[2024-12-05 19:56] LABS: Chlamydia pneumoniae PCR Not Detected (NotDetected); Coronavirus 229E PCR Not Detected (NotDetected); Coronavirus CoV-2 (COVID19)PCR Not Detected (NotDetected); Coronavirus HKU1 PCR Not Detected (NotDetected); Coronavirus NL63 PCR Not Detected (NotDetected); Coronavirus OC43PCR Not Detected (NotDetected); Human Metapneumovirus PCR Not Detected (NotDetected); Parainfluenza Virus 1 PCR Not Detected (NotDetected); Parainfluenza Virus 2 PCR Not Detected (NotDetected); Parainfluenza Virus 3 PCR Not Detected (NotDetected); Parainfluenza Virus 4 PCR Not Detected (NotDetected); Respiratory Syncytial VirusPCR Not Detected (NotDetected); Rhinovirus/Enterovirus PCR Not Detected (NotDetected)
[2024-12-05] MEDS: MELATONIN 3 MG TAB PO PRN (21:40)
--- NOTE | 2024-12-06 01:21 | Communication Note ---
Date of Service: December 06, 2024 TigerText received by nurse around 00:50 that pt is tachycardiac in afib up into the 150s while on amio drip and maxed out on HFNC with saturations 87-90%. Went to bedside. Pt is somewhat confused, talking out her mom and something in the kitchen to herself, but can have a normal seeming conversation when directed. Pt asked me if the medications I gave her last night worked and when informed that they seemed to not work and she seems to be getting worse she responds "so that's it then? I'm dying." Advised pt we can still try some interventions but options are becoming limited at this point. CXR looks worsened compared to last night. CT lung from day reviewed. VBG with worsening retention of CO2 but surprisingly not acidotic. Pt still unable to tolerate bipap due to anxiety but given her fragile situation I believe giving her a benzo to curb the anxiety may worsen her overall condition further. Electrolytes are optimized at this point. Given she is on dilt po extended release and amio drip, defer beta bishop for high pressures as question if this is now just a defense mechanism for some underlying process vs the primary process of her decline. Interestingly, her CXR from prior to getting the 1 unit of PRBCs a few days ago looks fair with continued worsen since, however it has been days since her transfusion so question TRALI vs ARDS at this point. Given she is on antibiotics, changed cefepime to zosyn for further coverage. Given a high dose of dexamethasone. TSH wnl. Random cortisol is elevated. If she does not improve with steroid use, her overall prognosis likely extremely poor. Resident Activity Tracking Resident Involvement: Resident Care Provided Care Provided: Adult Hospital Medicine
[2024-12-06 01:40] LABS: Base Excess VBG 11.0 mEq/L; HCO3 VBG 40 mmol/L; Oxygen Saturation VBG 83.7 %; PCO2 VBG 70 mmHg (38-50); PO2 VBG 52 mmHg; pH VBG 7.36 (7.36-7.41)
--- NOTE | 2024-12-06 01:53 | XRay Report ---
EXAM: XR chest 1V portable CLINICAL HISTORY: worsening hyoxia TECHNIQUE: An X-ray image of the chest was obtained in AP projection. COMPARISON: Compared to the last available chest X-ray dated 12/05/2024. FINDINGS: Pulmonary Parenchyma: There is an interval progressive course concerning the patchy opacities seen, involving both lung scott with associated air bronchogram. Bilateral blunting of the costophrenic angles is still noted, denoting pleural effusion. Heart and Mediastinum: Cardiomegaly is still noted. Bony Thorax: The bony thorax appears intact without fractures or deformities. Soft Tissues: The soft tissues overlying the chest wall are unremarkable. IMPRESSION: There is an interval progressive course concerning the patchy opacities seen, involving both lung scott with associated air bronchogram. Possibilities include pulmonary edema versus bronchopneumonia. Further clinical correlation is recommended. Bilateral blunting of the costophrenic angles is still noted, denoting pleural effusion. Cardiomegaly is still noted. Electronically signed by Jaziel Goins 12-06-2024 01:52 AM
[2024-12-06 02:12] LABS: Anion Gap 8.0 (3-11); Blood Urea Nitrogen 75.0 mg/dl (6-23); Calcium 9.3 mg/dl (8.6-10.3); Carbon Dioxide 37.0 mmol/L (21-32); Chloride 93.0 mmol/L (98-107); Creatinine Clr Calc Pharmacy 17.0 ml/min; Glucose 131.0 mg/dl (70-99(Fasting)); Magnesium 2.1 mg/dl (1.7-2.4); Potassium 4.6 mmol/L (3.5-5.1); Sodium 138.0 mmol/L (136-145)
[2024-12-06 02:28] LABS: Thyroid Stimulating Hormone 2.22 uIu/ml (0.300-4.500)
[2024-12-06] MEDS: PIPERACILLIN/TAZOBACTAM 4.5 GM/100 ML BAG IV ONE (02:31)
[2024-12-06] MEDS: dexAMETHasone 20 MG in DEXTROSE 5% 25 ML IV SCH (02:31)
[2024-12-06] MEDS ORDERED: CEFEPIME 1000MG 1,000 MG/10 ML SYR IV SCH (04:15)
[2024-12-06] MEDS: PIPERACILLIN/TAZOBACTAM 4.5 GM/100 ML BAG IV SCH ×2 (05:19→18:17)
[2024-12-06 06:37] LABS: Alanine Aminotransferase 7.0 U/L (7-52); Albumin Globulin Ratio 1.1 (0.9-2); Albumin Level 3.4 gm/dl (3.4-5.0); Alkaline Phosphatase 40.0 U/L (34-104); Anion Gap 8.0 (3-11); Bilirubin,Total 1.3 mg/dl (0.2-1.0); Blood Urea Nitrogen 76.0 mg/dl (6-23); Calcium 9.0 mg/dl (8.6-10.3); Carbon Dioxide 36.0 mmol/L (21-32); Chloride 93.0 mmol/L (98-107); Creatinine Clr Calc Pharmacy 17.7 ml/min; Globulin 3.0 gm/dl (2.5-4.0); Glucose 187.0 mg/dl (70-99(Fasting)); Magnesium 2.1 mg/dl (1.7-2.4); Potassium 4.8 mmol/L (3.5-5.1); Sodium 137.0 mmol/L (136-145); Total Protein 6.4 gm/dl (6.0-8.3)
[2024-12-06 06:57] LABS: INR 5.1 (0.9-1.1); Prothrombin Time 49.2 Seconds (9.0-12.0)
--- NOTE | 2024-12-06 13:10 | Hospitalist Progress Note ---
Date of Service December 06, 2024 Assessment & Plan (1) Acute respiratory failure with hypoxia: (2) Acute on chronic heart failure with preserved ejection fraction: (3) Acute kidney injury superimposed on chronic kidney disease: (4) Atrial fibrillation with rapid ventricular response: (5) Paroxysmal atrial fibrillation: (6) Obesity hypoventilation syndrome: Plan Ayesha is an 84-year-old female who presented to the [facility] at the behest of their primary care physician due to supratherapeutic INR, subsequently admitted for acute respiratory failure in the setting of acute on chronic heart failure exacerbation with preserved ejection fraction, rapid atrial fibrillation, in addition to an acute on chronic kidney injury. Based on my conversation with her son, this is her second long hospital stay (previously at [facility]) and in between she was in SNF for about a week then home with him. He has seen significant decline in physical and mental status over past three months. Last 48h she has had significant worsening of her clinical status, with worsening hypoxia and pulmonary infiltrates. Worse this AM despite significant diuresis and reduction in BNP from 860 to 300. Bipap dependent, severely hypoxic and also hypercapnic overnight. Unclear cause of worsening pulmonary infiltrates and hypoxia. CT chest done yesterday - compatible with pulmonary edema, though not improved after significant diuresis so cardiogenic pulmonary edema does not fit the whole picture. Could be noncardiogenic pulmonary edema / ARDS - had transfusion this admission so could be TRALI, could have aspiration pneumonitis but no report of witnessed aspiration. Continue steroids started overnight. Resp biofire and nasal MRSA were negative 12/05. Bacterial pneumonia seems less likely because of negative serial procalcitonin, broad spectrum antibiotics started 12/05. # Acute on chronic hypoxic and hypercarbic respiratory failure - see discussion above # Untreated BRAYDEN/OHS - has been intolerant of Bipap at home so was not wearing, hypercapneic -continue bipap, trial of HFNC today -continue IV dexamethasone -continue IV antibiotics - pip-tazo and azithromycin -discussed with Dr. 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 Background of decline past three months # Atrial Fibrillation with rapid ventricular rate - uncontrolled but rate somewhat improved today - Heart rate remains high despite medications - diltiazem 240 mg po this am, amio bolus and drip started overnight - Uncontrolled atrial fibrillation causing acute pulmonary edema - Continue amiodarone # Acute on chronic HFpEF # moderate mitral stenosis - Lost ~9 kg water weight via diuretics this admission and -6L. Currently no peripheral edema. Probably dry at this point. - hold IV bumex at this time. BUN has increased, Cr increased to 2.45. - metoprolol is currently on hold and she is on diltiazem - warfarin held, supratherapeutic # COPD - history of, per her son. does not appear to be in acute exacerbation, no wheezing/bronchospasm - Continue monitoring and managing COPD symptoms, not currently on any inhalers or bronchodilators # coagulopathy - has continued with supratherapeutic INR despite warfarin held since 12/04, and was supratherapeutic on admission as well - related to nutritional or hepatic congestion? Bilirubin slightly elevated to 1.3 otherwise LFT wnl. Unchanged - ongoing anticoagulation with warfarin may not be a safe option for her going forward, I assume it was chosen because of her mitral stenosis. 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 She has been calling all her relatives telling them she's dying this morning. Earlier she said she wanted to stop treatment. For me she says she wants to continue treatment. She is hard of hearing and somewhat confused and unable to make a distinction between her acute illness and prognosis versus her chronic illnesses and prognosis. Her son is understanding and supportive. He has seen significant decline last three months. We both communicated to her that going home alone in the future was not an option with her current state of health. We touched on the idea of comfort measures or hospice. I have consulted palliative care to continue working on these discussions and help clarify. Ayesha has several acute conditions which are unstable and/or worsening with high risk of further clinical decompensation, medical decision making for this encounter was of high complexity Admission and Anticipated Discharge Date Admission Date: November 30, 2024 Subjective Worsened significantly past 24h, required bipap overnight and early this AM to maintain sats Early AM desatted when mask removed briefly, midday having trial of HFO2 at 60% FiO2 Discussed with RN, RT, her sister at bedside Ayesha needed some lorazepam to tolerate the Bipap. Unable to talk because of Bipap but is arousable Physical Exam 2 Physical Exam: Last 24h vitals reviewed GEN: ill appearing wearing bipap HEENT: pupils equal, sclerae anicteric, moist MM RESP: bilateral crackles throughout all scott persist CV: reg no mrg mostly obscured HS. cant see neck veins ABD: soft/nt/nd +BT Peripheral edema has completely resolved SKIN: warm and dry, no generalized rashes NEURO: arousable to voice, opens eyes, moves 4 ext spontaneously and equally Results & Data Results & Data Vital Signs (Past 12 Hours) Vital Signs Temp Pulse Pulse Resp BP Pulse Ox O2 Del Method 12/06/24 12:00 36.8 C 123 H 30 H 151/63 H 90 Room Air 12/06/24 08:00 BiPAP 12/06/24 07:22 108 H 32 H 91 12/06/24 07:22 36.6 C 120 H 32 H 126/89 91 BiPAP 12/06/24 02:38 99 H 30 H 95 12/06/24 01:14 135 H 28 H 96 FiO2 12/06/24 12:00 12/06/24 08:00 100 12/06/24 07:22 100 12/06/24 07:22 12/06/24 02:38 100 12/06/24 01:14 100 Laboratory Results 12/05/24 04:01 12/06/24 05:59 1 AM vbg 7.36/70 Bili 1.3, LFT normal otherwise BNP down to 298 from 864 yesterday Procal 0.48 TSH 2.2 Cortisol 41 Nasal MRSA neg Resp biofire neg CXR - personally reviewed film - continued worsening of bilateral patchy pulmonary infiltrates PG Care Time/CCT Total # of Minutes Spent Total Time Spent with Patient: Total time spent is greater than 50% in coordination of care (as documented) at patient's floor/unit and/or counseling patient: Coding Level of Care Code 93144 SUB INP/OBS CARE 3/50MIN Diagnoses Acute respiratory failure with hypoxia J96.01 Acute on chronic heart failure with preserved ejection fraction I50.33 Acute kidney injury superimposed on chronic kidney disease N17.9; N18.9 Atrial fibrillation with rapid ventricular response I48.91 Paroxysmal atrial fibrillation I48.0 Obesity hypoventilation syndrome E66.2
--- NOTE | 2024-12-06 14:41 | Pulmonary Consultation ---
Date of Consultation December 06, 2024 Assessment & Plan (1) Mitral stenosis: Cardiac valve disease etiology: nonrheumatic Qualified Code(s): I34.2 - Nonrheumatic mitral (valve) stenosis (2) Obesity hypoventilation syndrome: (3) Acute respiratory failure with hypoxia: Plan Impression: 84-year-old female with moderate mitral stenosis, obesity hypoventilation syndrome, A-fib with RVR, and ongoing hypoxemic respiratory failure with persistent pulmonary infiltrates. Recommendations: 1. Bilateral pulmonary infiltrates: Differential diagnosis would include infectious, inflammatory, and other etiologies. No prior comparison films to review. Her BNP is mildly elevated but not as high as it was previously and she has been diuresed without significant improvement. Procalcitonin remains low although most recent was at 0.48. She is already receiving antibiotics in the form of Zosyn and azithromycin. She does have significant mitral stenosis and is anticoagulated. This pattern may predispose her to pulmonary capillary fracture with associated hemorrhage which may have a similar radiographic pattern. Discussed with family and patient and advised that definitive diagnosis would likely require bronchoscopy with BAL. They are adamantly opposed to that and I would tend to agree given the fact the patient is on a large amount of oxygen currently and may end up intubated if we were to pursue that approach. We discussed empirically stopping anticoagulation with its attendant risks of increased stroke. The patient and family of take it under consideration. Reversing her INR with FFP or with Kcentra may be a consideration to achieve a more rapid therapeutic intervention. This will be deferred to the patient's primary admitting service once the family comes to a decision. 2. Obesity hypoventilation syndrome/sleep apnea: Patient's most recent blood gas shows a pH 7.36 with a pCO2 of 70. This was a venous gas. Would recommend nocturnal noninvasive positive pressure ventilation but again the patient is unclear if she wants to continue these interventions. Persistent hypercarbia will exacerbate her hypoxemia although this would not account for the radiographic abnormalities identified on chest x-ray and CT scan. 3. Patient has been diuresed with an increase in her creatinine. BNP is only 298 whereas previously it was over 1500. Would hold on additional diuretics at this point in time. 4. Think the patient is a candidate for any intervention for her mitral valve. Unfortunately, not much else to offer at this point in time. If the patient fails current interventions, palliative care and discussions of goals of therapy would be appropriate History of Present Illness Attending Physician: Krysta Huang MD History of Present Illness Asked by hospitalist to assist in evaluation management this patient with pulmonary infiltrates and respiratory failure. History is obtained from discussion with the patient as well as review of the electronic medical record. The patient is an 84-year-old female who is morbidly obese. She carries a history of obesity hypoventilation syndrome, sleep apnea, atrial fibrillation as well as chronic kidney disease chronic hypoxemic respiratory failure, chronic heart failure with preserved ejection fraction, and moderate mitral stenosis. She was admitted to the facility 11/30/2024 from home. She had previously been admitted at [facility]. She endorsed orthopnea and dyspnea on ex ertion. She was found to be in atrial fibrillation with rapid ventricular response. She has been seen by cardiology yesterday. She remains tachycardic in the 140s to 150s. She has had attempts at diuresis. Unfortunately chest x- ray and CT scan have demonstrated persistent alveolar opacities. Prior imaging from [facility] is not available to review. She is anticoagulated with Coumadin. She has not had hemoptysis. She has been intermittently on BiPAP. She is DNR/DNI and does not want to pursue aggressive or invasive procedures at this point in time. Her 2 sons are at bedside who support her decisions. Reportedly she had discussions with one of her sons the other night stating that she was too fatigued to go on. They have not met with palliative care nor if they had end-of-life discussions although they did go through that with her father previously. Allergies Allergy/AdvReac Type Severity Reaction Status Date / Time No Known Drug Allergies Allergy Unknown Unknown Verified 12/01/24 07:33 Patient History Social History Smoking Status: Former smoker Tobacco Type: Cigarettes Hx Alcohol Use: No Hx Substance Use: No Preferred Language: French Communication Ability: Effective International Organizer Required: No Beliefs That Will Affect Care: None Current Living Situation: Alone Feels Safe at Home: Yes Assistive Devices: Cane and Walker Review of Systems 2 Review of Systems: Please refer to hospital progress notes Physical Exam Constitutional: WD/WN, vitals as above + obese Neck: trachea midline, no thyromegaly Respiratory: + labored breathing and + tachypneic; no respiratory distress and no cough Auscultation: + crackles and + rhonchi; no wheezes Cardiovascular: RRR, no murmur, no edema Gastrointestinal (Abdomen): normal bowel sounds, soft, nontender, no hepatosplenomegaly Musculoskeletal: Extremities: extremities normal to inspection Skin: no rashes, warm and dry Neurologic: Nonfocal exam Lymphatic: no cervical lymphadenopathy Results & Data Results & Data Vital Signs (Past 12 Hours) Vital Signs Temp Pulse Pulse Resp BP Pulse Ox O2 Del Method 12/06/24 12:00 36.8 C 123 H 30 H 151/63 H 90 Room Air 12/06/24 08:00 BiPAP 12/06/24 07:22 108 H 32 H 91 12/06/24 07:22 36.6 C 120 H 32 H 126/89 91 BiPAP FiO2 12/06/24 12:00 12/06/24 08:00 100 12/06/24 07:22 100 12/06/24 07:22 Critical Care Results & Data Vital Signs (Past 12 Hours) Vital Signs Temp Pulse Pulse Resp BP Pulse Ox O2 Del Method 12/06/24 12:00 36.8 C 123 H 30 H 151/63 H 90 Room Air 12/06/24 08:00 BiPAP 12/06/24 07:22 108 H 32 H 91 12/06/24 07:22 36.6 C 120 H 32 H 126/89 91 BiPAP FiO2 12/06/24 12:00 12/06/24 08:00 100 12/06/24 07:22 100 12/06/24 07:22 Lab & Micro Results (Past 24 Hours) No Data to Display Na 137 mmol/L (136-145) 12/06/24 K 4.8 mmol/L (3.5-5.1) 12/06/24 Cl 93 mmol/L (98-107) L 12/06/24 CO2 36 mmol/L (21-32) H 12/06/24 Anion Gap 8 (3-11) 12/06/24 BUN 76 mg/dl (6-23) H 12/06/24 Creatinine 2.45 mg/dl (0.6-1.2) H 12/06/24 BUN/Creatinine Ratio 31.0 (10-20) H 12/06/24 Glu 187 mg/dl (70-99(Fasting)) H 12/06/24 Ca 9.0 mg/dl (8.6-10.3) 12/06/24 Total Bilirubin 1.3 mg/dl (0.2-1.0) H 12/06/24 AST 15 U/L (13-39) 12/06/24 ALT 7 U/L (7-52) 12/06/24 Alkaline Phosphatase 40 U/L (34-104) 12/06/24 TP 6.4 gm/dl (6.0-8.3) 12/06/24 Albumin 3.4 gm/dl (3.4-5.0) 12/06/24 Globulin 3.0 gm/dl (2.5-4.0) 12/06/24 Albumin/Globulin Ratio 1.1 (0.9-2) 12/06/24 Mg 2.1 mg/dl (1.7-2.4) 12/06/24 05:59 Calcium Level 9.0 mg/dl (8.6-10.3) 12/06/24 05:59 Prothromb Time International Ratio 5.1 (0.9-1.1) H 12/06/24 05 :59 Venous Blood pH 7.36 (7.36-7.41) 12/06/24 01:17 Venous Blood Partial Pressure CO2 70 mmHg (38-50) H 12/06/24 01 :17 Venous Blood Partial Pressure O2 52 mmHg 12/06/24 01:17 Venous Blood HCO3 40 mmol/L 12/06/24 01:17 Venous Blood Base Excess 11.0 mEq/L 12/06/24 01:17 Venous Blood Oxygen Saturation 83.7 % 12/06/24 01:17 Diagnostic Findings (Past 24 Hours) Chest CT 12/05/24 16:46 CT chest without contrast History: Hypoxia Comparison: None Technique: Helical CT imaging of the chest performed without IV contrast Dose reduction techniques were achieved by using automatic exposure control and/or adjustment of mA and/or kV according to patient size and/or use of iterative reconstruction technique. Findings: There are small bilateral pleural effusions with subjacent compressive atelectasis. Throughout the lungs, there are mixed alveolar ground glass as well as consolidative opacities, and interstitial pulmonary edema seen. No pneumothorax. Heart size is enlarged. Prominent mitral annular calcifications. The thoracic aorta is normal in size. The pulmonary artery is normal in size. No significant pericardial effusion. No suspicious lymphadenopathy in the chest. The central airway is clear. Limited visualized upper abdomen. No acute bony abnormalities. Impression: Cardiomegaly and small pleural effusions are seen. Interstitial pulm edema. Scattered mixed patchy ground glass and consolidative opacities, much of which likely represents pulmonary edema, with underlying infection not excluded. Electronically signed by Brian Shields 12-05-2024 5:23 PM Chest X-Ray 12/06/24 00:53 EXAM: XR chest 1V portable CLINICAL HISTORY: worsening hyoxia TECHNIQUE: An X-ray image of the chest was obtained in AP projection. COMPARISON: Compared to the last available chest X-ray dated 12/05/2024. FINDINGS: Pulmonary Parenchyma: There is an interval progressive course concerning the patchy opacities seen, involving both lung scott with associated air bronchogram. Bilateral blunting of the costophrenic angles is still noted, denoting pleural effusion. Heart and Mediastinum: Cardiomegaly is still noted. Bony Thorax: The bony thorax appears intact without fractures or deformities. Soft Tissues: The soft tissues overlying the chest wall are unremarkable. IMPRESSION: There is an interval progressive course concerning the patchy opacities seen, involving both lung scott with associated air bronchogram. Possibilities include pulmonary edema versus bronchopneumonia. Further clinical correlation is recommended. Bilateral blunting of the costophrenic angles is still noted, denoting pleural effusion. Cardiomegaly is still noted. Electronically signed by Jaziel Goins 12-06-2024 01:52 AM I & O Totals 24 Hours 12/05/24 12/06/24 12/07/24 06:59 06:59 06:59 Intake Total 1833.666 / 2343.131 6342.292 / 1783.292 211.708 / 211.708 Output Total 2049 / 2049 1750 / 175 Balance -216.334 / -216.334 33.292 / 33.292 211.708 / 211.708 Cumulative 11/30/24 14:05 thru 12/06/24 11:52 Intake Total 6618.083 Output Total 28951 Balance -5808.917 RT Ventilator Mngmt (Last Documented) Ventilator Ordered Settings Respiratory Rate 30 12/06/24 12:00 Fraction of Inspired Oxygen 100 12/06/24 08:00 Ventilator - PT Measurements Respiratory Rate 30 PG Care Time/CCT Total # of Minutes Spent Total Time Spent with Patient: Total time spent is greater than 50% in coordination of care (as documented) at patient's floor/unit and/or counseling patient: Coding Level of Care Code 89022 INT INP/OBS CARE 3/75MIN Diagnoses Nonrheumatic mitral valve stenosis I34.2 Cardiac valve disease etiology: nonrheumatic Obesity hypoventilation syndrome E66.2 Acute respiratory failure with hypoxia J96.01
--- NOTE | 2024-12-06 15:18 | Cardiology Progress Note ---
Date of Service December 06, 2024 Assessment & Plan (1) Atrial fibrillation with rapid ventricular response: (2) Chronic heart failure with preserved ejection fraction: (3) Mitral stenosis: Plan 1. Hypoxemic respiratory failure: Her clinical condition continues to decline. Some concern about primary pulmonary process, possibly pneumonitis or alveolar hemorrhage. Transfusion reaction also being considered. She is on high-dose steroids currently. Antibiotics also administered. Consideration of bronchoscopy for definitive diagnosis although patient requiring a lot of respiratory support and continues to be "DNI". Family deciding on options. 2. Heart failure with preserved ejection fraction: Perhaps an element of pulmonary vascular congestion. However, BNP is improved and she is affected a very good diuresis in the past several days. Holding diuretics at this time. 3. Atrial fibrillation: Rates continue to be high. This is a consequence of her declining clinical status. 4. Mitral stenosis: Moderate. Not a candidate for intervention Patient is nearing terminal phase. Hopefully with the interventions initiated last evening we will see some improvement in her clinical course. Admission and Anticipated Discharge Date Admission Date: November 30, 2024 Subjective Patient seen at the bedside this morning. However, she was on BiPAP and unable to speak much due to persistent respiratory distress. Review of Systems Review of Systems: Per HPI Physical Exam Physical Exam: She is alert. Unable to respond to questions due to respiratory distress. HEENT: Sclerae are anicteric. Pupils are equal and reactive to light and accommodation. Extraocular movements were intact. Neuro: Cranial nerves intact Lungs: Tachypneic. Some bronchial breath sounds. Cardiac: The rhythm was irregular. S1 and S2 were normal. Systolic murmur appreciated. The PMI was not markedly displaced on palpation. Extremities: Patient has bilateral radial pulses that are equal in intensity. There is no evidence cyanosis or clubbing. There was no evidence of significant peripheral edema bilaterally. Skin: There are no rashes noted on examination today. Results & Data Vital Signs (Past 12 Hours) Vital Signs Temp Pulse Pulse Resp BP Pulse Ox O2 Del Method 12/06/24 12:00 36.8 C 123 H 30 H 151/63 H 90 Room Air 12/06/24 08:00 BiPAP 12/06/24 07:22 108 H 32 H 91 12/06/24 07:22 36.6 C 120 H 32 H 126/89 91 BiPAP FiO2 12/06/24 12:00 12/06/24 08:00 100 10/02/25 07:22 100 12/06/24 07:22 Laboratory Results Abnormal Lab Results 12/05/24 12/05/24 12/05/24 16:26 18:23 18:31 PT INR VBG pH VBG pCO2 VBG pO2 VBG HCO3 VBG O2 Saturation VBG Base Excess Sodium Potassium Chloride Carbon Dioxide Anion Gap BUN Creatinine Est Cr Clr Drug Dosing eGFR BUN/Creatinine Ratio Glucose Lactate Calcium Magnesium Total Bilirubin AST ALT Alkaline Phosphatase B-Natriuretic Peptide Total Protein Albumin Globulin Albumin/Globulin Ratio Procalcitonin 0.24 TSH Random Cortisol Nasal Screen MRSA (PCR) Negative Adenovirus (PCR) Not Detected B. pertussis DNA (PCR) Not Detected B.parapertussis DNA PCR Not Detected C. pneumoniae DNA (PCR) Not Detected Coronavirus OC43 (PCR) Not Detected Coronavirus HKU1 (PCR) Not Detected Coronavirus 229E (PCR) Not Detected SARS-CoV-2 (PCR) Not Detected Coronavirus NL63 (PCR) Not Detected Human Metapneumovir PCR Not Detected Influenza Type A (PCR) Not Detected Influenza Type B (PCR) Not Detected M. pneumoniae (PCR) Not Detected Parainfluenza 1 (PCR) Not Detected Parainfluenza 2 (PCR) Not Detected Parainfluenza 3 (PCR) Not Detected Parainfluenza 4 (PCR) Not Detected RSV (PCR) Not Detected Entero/Rhino (PCR) Not Detected 12/06/24 12/06/24 12/06/24 01:17 01:26 05:59 PT 49.2 H INR 5.1 H VBG pH 7.36 VBG pCO2 70 H VBG pO2 52 VBG HCO3 40 VBG O2 Saturation 83.7 VBG Base Excess 11.0 Sodium 138 137 Potassium 4.6 4.8 Chloride 93 L 93 L Carbon Dioxide 37 H 36 H Anion Gap 8 8 BUN 75 H 76 H Creatinine 2.54 H 2.45 H Est Cr Clr Drug Dosing 17.0 17.7 eGFR 18.15 18.95 BUN/Creatinine Ratio 29.5 H 31.0 H Glucose 131 H 187 H Lactate 1.1 Calcium 9.3 9.0 Magnesium 2.1 2.1 Total Bilirubin 1.3 H AST 15 ALT 7 Alkaline Phosphatase 40 B-Natriuretic Peptide 298 H Total Protein 6.4 Albumin 3.4 Globulin 3.0 Albumin/Globulin Ratio 1.1 Procalcitonin 0.48 TSH 2.220 Random Cortisol 41.94 Nasal Screen MRSA (PCR) Adenovirus (PCR) B. pertussis DNA (PCR) B.parapertussis DNA PCR C. pneumoniae DNA (PCR) Coronavirus OC43 (PCR) Coronavirus HKU1 (PCR) Coronavirus 229E (PCR) SARS-CoV-2 (PCR) Coronavirus NL63 (PCR) Human Metapneumovir PCR Influenza Type A (PCR) Influenza Type B (PCR) M. pneumoniae (PCR) Parainfluenza 1 (PCR) Parainfluenza 2 (PCR) Parainfluenza 3 (PCR) Parainfluenza 4 (PCR) RSV (PCR) Entero/Rhino (PCR) PG Care Time/CCT Total # of Minutes Spent Total Time Spent with Patient: Total time spent is greater than 50% in coordination of care (as documented) at patient's floor/unit and/or counseling patient: Coding Level of Care Code 79174 SUB INP/OBS CARE 3/50MIN Diagnoses Atrial fibrillation with rapid ventricular response I48.91 Chronic heart failure with preserved ejection fraction I50.32 Nonrheumatic mitral valve stenosis I34.2 Cardiac valve disease etiology: nonrheumatic (3) Mitral stenosis Cardiac valve disease etiology: nonrheumatic Qualified Code(s): I34.2 - Nonrheumatic mitral (valve) stenosis
[2024-12-06] MEDS: PHYTONADIONE 5 MG TAB PO STA (16:14)
--- NOTE | 2024-12-06 20:37 | Advance Care Plan Prog Note ---
Advanced Care Planning Note Date of Discussion December 06, 2024 ACP Discussion Diagnoses requiring ACP discussion: Acute respiratory failure A [id number] discussion with the patient regarding the patient's advanced care planning took place during this hospitalization on the above date. Son Cleve was contacted by pt's phone by pt to participate in the discussion. Prior to call, I asked pt herself what she would want if her respiratory status were to worsen. She states she would want to "just be let go" and that "if god says it's her time, it's her time." She is alert and oriented and does understand that if we were to do things such as remove the oxygen from her that she would likely . She would like for her sons to make final decision, though. Cleve was on speaker phone and him and I discussed her clinical course so far at bedside with pt in attendance to sheila in as she wishes. Cleve states that he does understand she is getting worse the last few days but that during the day today she seemed a bit better and was more hopeful about her prognosis which makes the decision on what to do if she were to decline even more difficult. Discussed with him current therapies we are doing and that once HFNC is maxed out we would need to switch to bipap to further optimize her oxygenation and that that would be the most we could do given her DNI status. He states he would like to call his brother Himanshu to discuss as well. Several minutes later Himanshu called the phone to speak and a group call was made between Cleve, Himanshu, and me via pt's phone and put on speaker phone for pt to hear and contribute if desired. Updated Himanshu on same information that she is being optimize nearly as much as possible at this point and my call to them is twofold; to update them on what I have observed the last few nights so we are all on the same page and to discuss with them the possibility that she may decline at any point and what family would like for us to do if that were to happen. Ultimately through discussions, brothers would like to be called if she further declines so they can come in for her and final decisions could be made then. I did warn them that respiratory failure can worsen rather suddenly, and if that is the case I would call them to discuss the situation. They are both in agreement with this plan. Pt in agreement to continue current therapies. The brothers did note pt has significant anxiety when left alone which definitely worsens her mindset. Agree with them that ideally pt has 1:1 for company all night to help with this anxiety but staffing does make it hard. Placed 1:1 order in as needed. I will also check on pt throughout night as able. General prognosis for her at this point I would say is rather poor, especially if no improvement in the next 24 hours. The following summarizes the discussion: Continue current interventions. Maintain DNR/DNI. If pt worsens, call sons Cleve and Himanshu to come in or, if pt declining quickly, call to discuss next steps with pt's wishes to be comfortable in mind if this were to happen (but she leaves ultimate decision up to her sons). Status Resuscitation Status DNR/DNI No Resuscitation Total Time I spent a total of 40 minutes was spent on this discussion, including counseling, answering questions, and completing, if any, pertinent advanced care planning forms/documents. Resident Activity Tracking Resident Involvement: Resident Care Provided and Student Affairs Dean Coverage Note Care Provided: Adult Hospital Medicine
--- NOTE | 2024-12-07 04:19 | Communication Note ---
Date of Service: December 07, 2024 Called primary contact son Wale around 0200 for worsening respiratory status; maxed out on HFNC with overlaying oxymask with saturations still at most in the mid 80s. He states he will contact his brother Cleve and he will come in. Nurse alerted me around 0400 that family is at bedside. Went to bedside to talk to family; Wale and his are present. Discussed pt continues to worsen, oxygen saturations continue to slowly decline while HR trends up, persistently 140s even on dilt extended release and amio drip. At this point, advised there is little more we can do to support her breathing and pt voices wishes to be comfort. She is tachypneic and very fatigued appearing. Wale is in agreement to comfort but states he would like for his brother Cleve to be able to see her before full transition (he lives in [place] and Wale states he will be in this morning, currently trying to get some rest as he has afib and they worry if he does not rest he will go into afib here.) I advised that giving comfort medications such as opioids and benzos are likely to cause her to further decline. Family and pt in agreement to continue most medications at this point until son Cleve arrives and then provider will talk to them but probable plan then for FAMILY MEDICINE PHYSICIAN ASSISTANT. I did advise I would take off antibiotics at this point to reduce medication burden as they are likely doing little for her given her picture does not appear infectious and she has not improved on these. They are in agreement. Overall plan; final check in at bedside once son Cleve is able to see her and probable plan to transition to FAMILY MEDICINE PHYSICIAN ASSISTANT at that time per pt and family. No escalation of care at this point. Resident Activity Tracking Resident Involvement: Resident Care Provided Care Provided: Adult Hospital Medicine
[2024-12-07 06:26] LABS: Base Excess VBG 10.0 mEq/L; HCO3 VBG 39 mmol/L; Oxygen Saturation VBG 66.3 %; PCO2 VBG 72 mmHg (38-50); PO2 VBG 40 mmHg; pH VBG 7.34 (7.36-7.41)
[2024-12-07 06:56] LABS: INR 3.1 (0.9-1.1); Prothrombin Time 31.0 Seconds (9.0-12.0)
[2024-12-07 07:04] LABS: Anion Gap 10.0 (3-11); Blood Urea Nitrogen 92.0 mg/dl (6-23); Calcium 9.7 mg/dl (8.6-10.3); Carbon Dioxide 35.0 mmol/L (21-32); Chloride 91.0 mmol/L (98-107); Creatinine Clr Calc Pharmacy 14.0 ml/min; Glucose 216.0 mg/dl (70-99(Fasting)); Magnesium 2.4 mg/dl (1.7-2.4); Potassium 5.0 mmol/L (3.5-5.1); Sodium 136.0 mmol/L (136-145)
[2024-12-07] MEDS ORDERED: ONDANSETRON INJ 2 MG/ML 2 ML VIAL IV PRN (07:43)
[2024-12-07] MEDS ORDERED: PROCHLORPERAZINE 5 MG in SYRINGE 4 ML IV PRN (07:43)
[2024-12-07] MEDS ORDERED: GLYCOPYRROLATE 0.2 MG/ML VIAL IV PRN (07:43)
[2024-12-07] MEDS ORDERED: ACETAMINOPHEN 650 MG SUPP PR PRN (07:43)
--- NOTE | 2024-12-07 07:59 | Communication Note ---
Date of Service: December 07, 2024 Full note to follow I met with Ayesha and her son Cleve at bedside. Transitioning to comfort measures this am.
[2024-12-07] MEDS: HYDROmorphone INJ 0.5 MG/0.5 ML SYR IV PRN (08:02)
[2024-12-07] MEDS: LORazepam Inj 0.5 MG in SYRINGE 0.25 ML IV PRN (08:14)
[2024-12-07] MEDS: SODIUM CHLORIDE 0.9% 500 ML IV SCH (08:36)
[2024-12-07] MEDS: SODIUM CHLORIDE 0.9% 500 ML IV ONE (08:36)
--- NOTE | 2024-12-07 15:51 | Hospitalist Progress Note ---
Date of Service December 07, 2024 Assessment & Plan (1) Acute respiratory failure with hypoxia: (2) Acute on chronic heart failure with preserved ejection fraction: (3) Acute kidney injury superimposed on chronic kidney disease: (4) Atrial fibrillation with rapid ventricular response: (5) Paroxysmal atrial fibrillation: (6) Obesity hypoventilation syndrome: Plan Ayesha is an 84-year-old woman with afib BRAYDEN/OHS and HFpEF who was admitted for acute respiratory failure and supratherapeutic INR. She had a massive diuresis this admission and warfarin was held. She was transfused one unit RBCs for Hg<7. She developed progressively worsening bilateral pulmonary infiltrates, worsening respiratory failure and rapid afib refractory to rate control. She was treated with diuresis, steroids, broad-spectrum IV antibiotics as well as high flow oxygen and bipap yet continued to worsen. She did not want to continue bipap and did not want intubation and mechanical ventilation. Ayesha and her family chose to transition to comfort measures 12/07. Comfort oriented care - ordered IV hydromorphone, IV lorazepam each 0.5 mg q1h PRN dyspnea or pain/anxiety - discussed with RT and bedside nurse - can wean down high flow O2, adjust oxygen FiO2/flow rate to comfort/relief of dyspnea - glycopyrrolate PRN secretions - stop medications and monitoring not providing for comfort - oral intake as tolerated/desired - remains DNR/DNI Diagnoses evaluated/treated this admission: # Acute on chronic hypoxic and hypercarbic respiratory failure # Progressive bilateral pulmonary infiltrates - worsened despite diuresis to dry, DDx noncardiogenic pulmonary edema (ARDS), potentially aspiration pneumonitis though aspiration never observed, TRALI, diffuse alveolar hemorrhage, pneumonia. Too ill to tolerate bronchoscopy for further diagnostics # Acute on chronic HFpEF # BRAYDEN/OHS - intolerant of Bipap as outpatient # MIKE on CKD 3b - prerenal, related to diuresis # Rapid atrial fibrillation # Moderate mitral stenosis # COPD # Coagulopathy, warfarin anticoagulation Admission and Anticipated Discharge Date Admission Date: November 30, 2024 Subjective Hypoxia worsened overnight and unable to maintain sats consistently over 85% with HFO2 100%/60L I came to bedside early AM her son Cleve is present. Ayesha does not want to go back onto bipap and requests transition to comfort measures. Both her sons are in support of this decision. Continues to be dyspneic and uncomfortable, though feels better on HFNC than bipap Physical Exam 2 Physical Exam: Last 24h vitals reviewed GEN: ill appearing wearing HFO2 cannula HEENT: pupils equal, sclerae anicteric, dry MM RESP: bilateral crackles throughout all scott- no change, labored resp CV: reg no mrg no JVD ABD: soft/nt/nd +BT No peripheral edema SKIN: warm and dry, no generalized rashes NEURO: alert and oriented to situation. able to participate in conversation. Results & Data Results & Data Vital Signs (Past 12 Hours) Vital Signs Temp Pulse Resp BP Pulse Ox O2 Del Method O2 Flow Rate 12/07/24 11:37 129 H 24 63 L High Flow Nasal Cannula 30 12/07/24 09:00 Oxymask, High Flow Nasal Cannula 60 12/07/24 07:59 132 H 26 H 82 L High Flow Nasal Cannula 60 12/07/24 03:46 36.3 C L 125 H 28 H 173/76 H Oxymask, High Flow Nasal Cannula FiO2 12/07/24 11:37 60 12/07/24 09:00 100 12/07/24 07:59 100 12/07/24 03:46 Laboratory Results 12/05/24 04:01 12/07/24 06:11 INR 3 PG Care Time/CCT Total # of Minutes Spent Total Time Spent with Patient: Total time spent is greater than 50% in coordination of care (as documented) at patient's floor/unit and/or counseling patient: Coding Level of Care Code 45099 SUB INP/OBS CARE 3/50MIN Diagnoses Acute respiratory failure with hypoxia J96.01 Acute on chronic heart failure with preserved ejection fraction I50.33 Acute kidney injury superimposed on chronic kidney disease N17.9; N18.9 Atrial fibrillation with rapid ventricular response I48.91 Paroxysmal atrial fibrillation I48.0 Obesity hypoventilation syndrome E66.2
--- NOTE | 2024-12-07 16:46 | Death Pronouncement Note ---
Date of Service December 07, 2024 Pronouncement Note Admission Date Admission Date: November 30, 2024 Date and Time of Date of : 12/07/24 Time of : 16:23 PCOD Preliminary cause of : Acute on chronic respiratory failure with hypoxia and hypercapnia Contributing Factors (1) Acute respiratory failure with hypoxia: Contributing factors: progressive pulmonary infiltrates (2) Acute on chronic heart failure with preserved ejection fraction: (3) Acute kidney injury superimposed on chronic kidney disease: (4) Atrial fibrillation with rapid ventricular response: (5) Paroxysmal atrial fibrillation: (6) Obesity hypoventilation syndrome: Additional Data Attending physician: Krysta Huang MD
--- NOTE | 2024-12-07 16:50 | Discharge Summary ---
Discharge Summary Date of Service December 07, 2024 Principal Dx & Hospital Course #1 = Principal Diagnosis (1) Acute respiratory failure with hypoxia: (2) Acute on chronic heart failure with preserved ejection fraction: (3) Acute kidney injury superimposed on chronic kidney disease: (4) Atrial fibrillation with rapid ventricular response: (5) Paroxysmal atrial fibrillation: (6) Obesity hypoventilation syndrome: Damian Ayesha is an 84-year-old woman with afib BRAYDEN/OHS and HFpEF who was admitted for acute respiratory failure and supratherapeutic INR. She had a massive diuresis this admission and warfarin was held. She was transfused one unit RBCs for Hg<7. She developed progressively worsening bilateral pulmonary infiltrates, worsening respiratory failure and rapid afib refractory to rate control. She was treated with diuresis, steroids, broad-spectrum IV antibiotics as well as high flow oxygen and bipap yet continued to worsen. She did not want to continue bipap and did not want intubation and mechanical ventilation. Ayesha and her family chose to transition to comfort measures 12/07. Ayesha later the same afternoon. Diagnoses evaluated/treated this admission: # Acute on chronic hypoxic and hypercarbic respiratory failure # Progressive bilateral pulmonary infiltrates - worsened despite diuresis to dry, DDx noncardiogenic pulmonary edema (ARDS), potentially aspiration pneumonitis though aspiration never observed, TRALI, diffuse alveolar hemorrhage, pneumonia. 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 She was at [facility] through 11/07. Sent to [facility] for rehab, she was there for about 2 weeks and then discharged to home. She notes up until about yesterday she was doing reasonably well at home. And then yesterday into today she started to feel more progressively short of breath. Denies fevers chills or sweats. Denies cough or sputum. Denies weight gain or edema. On directed questioning endorses orthopnea and may be some dyspnea on exertion. Seems a little overwhelmed and is maybe currently not the best historian, a lot of HPI from directed questioningspontaneously she mostly volunteers feeling more short of breath. On review of records it appears that she was at [facility] with dyspnea initially thought to be CHF she had A-fib with RVR, was diuresed, and then it appears that whenever her breathing was not improving enough it was pursued further with a CT that showed a multifocal pneumonia that was treated. She also showed hypercapnic respiratory failure and was sent with prescription for BiPAP appears to be at bedtime. She was started on warfarin for stroke prophylaxis with her A-fib. Discharge Exam Last 24h vitals reviewed GEN: nonresponsive RESP: prolonged absence of respiratory efforts CV: prolonged absence of heart sounds SKIN: cyanotic Discharge Plan Discharge Items Reason For Visit: ACUTE PULMONARY EDEMA, HYPOXIA Condition on Discharge: Fair Follow-up/Referrals: Lexi Diaz CRNP [Primary Care Provider] - Admission Data Admit Date/Time: 11/30/24 18:14 Attending Provider: Krysta Huang Admit Provider: Petr Rodriguez Primary Care Provider: Lexi Diaz Other Providers: [facility],[employer]; [place],[facility] [place]; [facility]; Petr Rodriguez; Brian Raymond; Rui Travis; [facility] Stay Data Consultations 11/30/24 16:58 ED Decision to Admit Stat 12/05/24 10:42 Consult Cardiology Routine 12/06/24 07:17 Consult Pulmonology Stat Diagnostic Imagining Performed 12/05/24 16:46 CT chest diagnostic wo con Stat Total Time Total Time Spent Total Time Spent (In Minutes): I personally spent: 60 minutes today on clinical care activities including: reviewing chart notes and vital signs reviewing labs examining and counseling the patient counseling the patient's family writing orders documentation Coding Level of Care Code 59163 INP/OBS DISCH >30 MIN Diagnoses Acute respiratory failure with hypoxia J96.01 Acute on chronic heart failure with preserved ejection fraction I50.33 Acute kidney injury superimposed on chronic kidney disease N17.9; N18.9 Atrial fibrillation with rapid ventricular response I48.91 Paroxysmal atrial fibrillation I48.0 Obesity hypoventilation syndrome E66.2
== END 2024-12-07 17:45 | disposition expired | DRG 189 ==
LOC: ED 14:12 → EDINP 18:14 → SUATTDRO 18:14 → 2E 21:10